=== PATIENT | male | born 1940 | race Caucasian/White ===

== ENCOUNTER 2023-09-27 14:39 | Outpatient (AMB) | payer MEDICARE, OTHER, SELFPAY ==
--- NOTE | 2023-09-27 14:25 | A.OFFPC_ITS ---
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 then dr melissa clement appt Intake Note: New patient visit Allergies No Known Allergies Allergy (Verified 09/27/23 14:44) Tobacco use date assessed: 09/27/23 Fall risk assessment: No Falls in past year Last assessed Fall Risk: 09/27/23 Dental Screening Dental Screen Date: 09/27/23 Did you have a dental visit in the last 12 months?: Yes Did you have a dental problem in the last 6 months where you did not have access to dental care?: No Was dental information given to patient?: Patient has dentist HPI HPI Comments History of Present Illness Details This is an 83-year-old male with a past medical history of GERD, hypercholesterolemia, hypertension, controlled type 2 diabetes, osteoarthritis, prostate cancer and gross hematuria presenting to [facility] care. The patient and his were snowbird spending half the year down at their home in [place]. Due to changes in infrastructure and new developments building down there they relocated full-time to their cottage in [place]. The patient signed a release for medical records. History of prostate cancer-patient says this was some 20 years ago. Patient says he was treated with radioactive seeds. He was followed by Urology. Eight years ago he had an episode of gross hematuria. It was only 1 time so he did not pursue medical intervention. Four years ago he had another episode. He went to the ER, but he was waiting too long to be seen and left. He saw his urologist. He says they did a cystoscopy. He does not recall other workup. They told him to return if symptoms came back. He has not had any other episodes. Hypertension is treated with amlodipine 5 mg, lisinopril 20 mg. His blood pressure is normal today. Hyperlipidemia is treated with 40 mg of simvastatin. He has not had labs done recently. GERD-this is related to a tight esophageal sphincter. He takes omeprazole. He has osteoarthritis for which he takes Rheumate. He says this is very helpful. He had bilateral knee replacement surgeries. He is on glimepiride 2 mg twice daily for diabetes. His last hemoglobin A1c was 6.8 or 6.9% in 02/27/2023. Requests referral to Podiatry-seen for foot exams. ROS: Constitutional: No unexplained weight loss, fever, chills, fatigue or night sweats. Respiratory: No shortness of breath, cough or sputum production. Cardiovascular: No chest pain, chest pressure or chest discomfort. No palpitations or pedal edema. Gastrointestinal: No anorexia, nausea, vomiting or diarrhea. No abdominal pain or blood in stool. Genitourinary: No dysuria, hematuria, urinary frequency. Neurologic: No headache, dizziness, syncope Endocrine: No cold or heat intolerance. No polyuria or polydipsia. Psychiatric: No depression or anxiety. No SI/HI. Physical exam: Constitutional: Alert, in no distress. Neck: Supple, Full range of motion. No lymphadenopathy. Respiratory: Clear to auscultation. Cardiovascular: S1 S2 regular. No murmurs. Gastrointestinal: Abdomen soft, non-tender, non-distended. Normal bowel sounds. No palpable masses. Genitourinary: No costovertebral angle tenderness. Extremities: Warm and well perfused. No clubbing, cyanosis or edema. Psychiatric: Normal mood and affect [facility] Medical History (Updated 09/27/23 @ 16:02 by RAHAT Ambrose) BPH (benign prostatic hyperplasia) Gross hematuria History of prostate cancer Pure hypercholesterolemia Essential hypertension Type 2 diabetes mellitus Arthritis Hypercholesteremia HTN (hypertension) GERD (gastroesophageal reflux disease) Bilateral knee pain Surgical History (Updated 09/27/23 @ 15:32 by RAHAT Ambrose) History of bilateral knee replacement History of appendectomy Family History (Updated 09/27/23 @ 14:58 by Morenita Clements CMA) Father Substance use Alcoholism Social History Housing: House Patient Tobacco Use Status: Former Tobacco user Tobacco use type: Cigar Years Smoked: Once in awhile in the past e-Cigarette/Vaping Use: Never Used service: No Current occupational status: retired Cognitive needs: No Hearing needs: Yes (hearing aids) Vision needs: No Questionnaire PHQ-9 Over the last 2 weeks, how often have you been bothered by any of the following problems? 1. Little interest or pleasure in doing things: not at all 2. Feeling down, depressed, or hopeless: not at all 3. Trouble falling or staying asleep, or sleeping too much: not at all 4. Feeling tired or having little energy: not at all 5. Poor appetite or overeating: not at all 6. Feeling bad about yourself - or that you are a failure or have let yourself or your family down: not at all 7. Trouble concentrating on things, such as reading the newspaper or watching television: not at all 8. Moving or speaking so slowly that other people could have noticed. Or the opposite - being so fidgety or restless that you have been moving around a lot more than usual: not at all 9. Thoughts that you would be better off or of hurting yourself in some way: not at all Total score: 0 Depression Screening Interpretation: Negative Depression Screening Done: Yes 79871 - PHQ-9 Billing: Yes Source: Developed by Drs. Fred Rhodes, Gregoria Welch, Timoteo Bunn and colleagues, with an educational maria r from [employer]. Thrive Questionnaire Date Thrive assessed: 09/27/23 I am a: Patient What is your living situation today?: I have a steady place to live Within the past 12 months, did the food you bought not last and you didn't have the money to get more?: Never true Within the past 12 months, did you worry whether your food would run out before you got money to buy more?: Never true Do you have trouble paying for medicines?: No Do you have trouble getting transportation to medical appointments?: No Do you have trouble paying your heating and electricity bill?: No Do you have trouble taking care of your child, family member or friend?: No Do you have trouble with day-to-day activities such as bathing, preparing meals, shopping, managing finances, etc.?: No Are you currently unemployed and looking for a job?: No Are you interested in more education?: No Please select the resources that you would like help with: None Currently or been in a relationship where the following occur: No concerns reported THRIVE Score: 0 AUDIT C Alcohol Use Questionnaire (AUDIT-C) 1. How often do you have a drink containing alcohol?: 4 or more times a week 2. How many drinks containing alcohol do you have on a typical day when you are drinking?: 1 or 2 3. How often do you have six or more drinks on one occasion?: Never Total Score: 4 EUGENE-7 AMB Questionnaire EUGENE-7 Date EUEGNE - 7 assessed: 09/27/23 Feeling nervous, anxious, or on edge: 0 = Not at all Not being able to stop or control worryin = Not at all Worrying too much about different things: 0 = Not at all Trouble relaxin = Not at all Being so restless that it is hard to sit still: 0 = Not at all Becoming easily annoyed or irritable: 0 = Not at all Feeling afraid as if something awful might happen: 0 = Not at all Total EUGENE-7 score (0-4 normal; 5-9 mild; 10-14 moderate; 15-21 severe): 0 Source: Developed by Drs. Fred Rhodes, Gregoria Welch, Timoteo Bunn and colleagues, with an educational maria r from [employer]. EUGENE-7 Assessment Billing EUGENE-7 Assessment Tool: EUGENE-7 Assessment 17415 Physical exam (Primary Care) Vital Signs: Last Vital Signs Temp 98.5 F 09/27/23 14:52 Pulse 87 09/27/23 14:52 Resp 14 09/27/23 14:52 BP 128/78 09/27/23 15:00 Pulse Ox 94 09/27/23 14:52 Oxygen Delivery Method Room Air 09/27/23 14:52 BMI result Body Mass Index 31.6 Tobacco/Smoking Status: Tobacco use Status Tobacco use date assessed 09/27/23 09/27/23 14:59 Patient Tobacco Use Status Former Tobacco user 09/27/23 14:59 Tobacco use type Cigar 09/27/23 14:59 e-Cigarette/Vaping Use Never Used 09/27/23 14:59 PHQ-9: PHQ-9 Score PHQ-9: Total score 0 09/27/23 15:33 Depression Screening Interpretation: Negative Thrive Assessment: Date of Thrive Assessment Date Thrive assessed 09/27/23 09/27/23 14:59 Currently or been in a relationship where the following occur: No concerns reported Assessment and Plan Assessment & Plan (1) Type 2 diabetes mellitus: Code(s): E11.9 - Type 2 diabetes mellitus without complications Qualifiers: Diabetes mellitus care home insulin use: without long term care administrator use Diabetes mellitus complication status: without complication Qualified Code(s): E11.9 - Type 2 diabetes mellitus without complications (2) Essential hypertension: Code(s): I10 - Essential (primary) hypertension (3) Pure hypercholesterolemia: Code(s): E78.00 - Pure hypercholesterolemia, unspecified (4) Arthritis: Code(s): M19.90 - Unspecified osteoarthritis, unspecified site (5) GERD (gastroesophageal reflux disease): Code(s): K21.9 - Gastro-esophageal reflux disease without esophagitis Qualifiers: Esophagitis presence: without esophagitis Qualified Code(s): K21.9 - Gastro-esophageal reflux disease without esophagitis (6) Gross hematuria: Code(s): R31.0 - Gross hematuria (7) History of prostate cancer: Code(s): Z85.46 - Personal history of malignant neoplasm of prostate Plan Type 2 diabetes Continue glimepiride. Check diabetic labs. He has supplies to check blood sugars at home. Target fasting readings 80-130. Hypertension Well-controlled. Check renal function. Continue current regimen. Low-sodium diet and avoidance of caffeine recommended. Hypercholesterolemia Recommended Mediterranean diet. Continue simvastatin. Check fasting lipid profile. Arthritis Refilled Rheumate for patient. 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 Refill given. Gross hematuria, history of prostate cancer Check UA, PSA, renal function. Referred to Urology. Records transfer pending. He has an appointment to establish care with his PCP in December. Orders: Orders Hemoglobin A1c Today E11.9 - Type 2 diabetes mellitus without complications, E78.00 - Pure hypercholesterolemia, unspecified, I10 - Essential (primary) hypertension Comprehensive Met. Panel Today E11.9 - Type 2 diabetes mellitus without complications, E78.00 - Pure hypercholesterolemia, unspecified, I10 - Essential (primary) hypertension Urine Culture Today R31.0 - Gross hematuria Lipid Panel Today E11.9 - Type 2 diabetes mellitus without complications, E78.00 - Pure hypercholesterolemia, unspecified, I10 - Essential (primary) hypertension UA w Microscopic Today R31.0 - Gross hematuria, Z85.46 - Personal history of malignant neoplasm of prostate Prostate Specific Antigen Scr Today Z12.5 - Encounter for screening for malignant neoplasm of prostate Referrals Urology Referral N40.0 - Benign prostatic hyperplasia without lower urinary tract symptoms, R31.0 - Gross hematuria, Z85.46 - Personal history of malignant neoplasm of prostate Podiatry Referral E11.9 - Type 2 diabetes mellitus without complications Medications: New simvastatin 40 mg PO .qhs 90 tabs 1RF lisinopril 20 mg PO DAILY 90 days 90 tabs 1RF glimepiride 2 mg PO BID 90 tabs 1RF amlodipine 5 mg PO DAILY 90 tabs 1RF omeprazole 20 mg PO DAILY 90 caps 1RF dutasteride 0.5 mg PO DAILY 90 caps 1RF [id number] 236 1-1-500 mg (Rheumate) 1 cap PO DAILY 90 caps 1RF Coding Level of Care Code New Pt Level 4 (29965) Complex EM visit Add On G2211 Diagnoses Type 2 diabetes mellitus without complication, without long-term current use of insulin E11.9 Diabetes mellitus care home insulin use: without care home use Diabetes mellitus complication status: without complication Essential hypertension I10 Pure hypercholesterolemia E78.00 Arthritis M19.90 Gastroesophageal reflux disease without esophagitis K21.9 Esophagitis presence: without esophagitis Gross hematuria R31.0 History of prostate cancer Z85.46 Additional Codes EUGENE-7 Assessment Billing - EUGENE-7 Assessment Tool: EUGENE-7 Assessment 02476 ([id number])
[2023-09-27 14:52] VITALS: BP 156/86; PULSE 87; RESP 14; TEMP 36.9; O2SAT 94; BMI 31.6
[2023-09-27 15:00] VITALS: BP 128/78
== END 2023-09-27 15:45 | disposition home or self-care (01) ==
PROVIDERS: PCP Family Medicine; Visit Provider Physician Assistant Medical
DX: E11.9 Type 2 diabetes mellitus without complications (principal); I10 Essential (primary) hypertension; E78.00 Pure hypercholesterolemia, unspecified; M19.90 Unspecified osteoarthritis, unspecified site; K21.9 Gastro-esophageal reflux disease without esophagitis; R31.0 Gross hematuria; Z85.46 Personal history of malignant neoplasm of prostate
CPT/HCPCS: 99204; G2211

== ENCOUNTER 2023-09-30 07:57 | Outpatient (REF) | payer MEDICARE, SELFPAY ==
[2023-09-30 11:16] LABS: Appearance Urine Clear; Color Urine Yellow; Glucose Urine UA Negative (Negative); Leukocyte Esterase Urine Negative (Negative); Nitrite Urine Negative (Negative); PH 5.5 (5.0-9.0); Specific Gravity - Urine 1.025 (1.005-1.025); Urine Blood Negative (Negative); Urine Ketones Negative (Negative); Urine Protein Trace mg/dL (Neg-Trace)
[2023-09-30 11:19] LABS: Bacteria Urine None Seen (None Seen); Hyaline Casts Urine 0-2 /LPF (0-2); RBC Urine 0-2 /HPF (0-2); Squamous Epithelial Cell Urine 0-2 /HPF (0-2); WBC Urine 0-5 /HPF (0-5)
[2023-09-30 11:29] LABS: Estimated Average Glucose 123 mg/dL; Hemoglobin A1C 149.0625 umol/L; Hemoglobin A1c % 5.9 % (<6.0)
[2023-09-30 11:44] LABS: Alanine Aminotransferase 21 U/L (0-40); Alkaline Phosphatase 38 U/L (39-117); Anion Gap 13 (12-20); Aspartate Amino Transferase 22 U/L (5-37); Bilirubin Total 1.2 mg/dL (0.0-1.0); Blood Urea Nitrogen 19 mg/dL (9-16); Calcium 9.2 mg/dL (8.4-10.2); Carbon Dioxide 21 mmol/L (22-29); Chloride 111 mmol/L (96-108); Cholesterol 176 mg/dL (<200); Estimated Glomerular Filt Rate > 60; Glucose Random 117 mg/dL (60-115); HDL Cholesterol 45 mg/dL (>40); LDL Cholesterol Calculated 107 mg/dL (<100); Sodium 141 mmol/L (135-145); Total Protein 7.1 g/dL (6.5-8.0); Triglycerides 122 mg/dL (<150)
[2023-09-30 11:56] LABS: Prostate Specific Antigen Scr < 0.10 ng/mL (<0.05-4.0)
== END 2023-09-30 07:58 | disposition home or self-care (01) ==
LOC: HO.WFDLDS 07:57
PROVIDERS: Visit Provider Physician Assistant Medical
DX: E11.9 Type 2 diabetes mellitus without complications (principal); I10 Essential (primary) hypertension; E78.00 Pure hypercholesterolemia, unspecified; R31.0 Gross hematuria; Z85.46 Personal history of malignant neoplasm of prostate; Z12.5 Encounter for screening for malignant neoplasm of prostate
CPT/HCPCS: 36415; 80053; 80061; 81001; 83036; 84153; 87086

== ENCOUNTER 2023-12-10 14:28 | Outpatient (AMB) | payer MEDICARE, SELFPAY ==
--- NOTE | 2023-12-10 15:12 | A.OFFPC_ITS ---
Vital Signs 12/10/23 15:18 Height 5 ft 6.34 in Weight 199 lb 6 oz BMI 31.8 BP 110/70 Blood Pressure Location Lt brachial Position Sitting Respiration 12 Pulse 79 Pulse Source Pulse Oximeter Pulse Oximetry (%) 96 Oxygen Delivery Method Room Air Intake Visit Reasons: Est Care Medications Intake Note: establish care Allergies No Known Allergies Allergy (Verified 12/10/23 15:16) Medication List - Last Reconciled 12/10/23 by Tyrell Carrasco MD amlodipine 5 mg PO DAILY cholecalciferol (vitamin D3) 50 mcg PO DAILY dutasteride 0.5 mg PO DAILY glimepiride 2 mg PO BID [id number] 236 1-1-500 mg (Rheumate) 1 cap PO DAILY lisinopril 20 mg PO DAILY 90 days multivitamin 1 tab PO DAILY omega-3 fatty acids 1,000 mg PO DAILY omeprazole 20 mg PO DAILY simvastatin 40 mg PO .qhs trospium 20 mg PO BID Tobacco use date assessed: 09/27/23 Dental Screening Dental Screen Date: 09/27/23 HPI Est Care Medications HPI Details New?patient Prior?PCP: Dr Pancho [place] Last?office?visit/CPE: 1 yr Acute?issue(s): Needs eye exam b/L foot arthritis. R foot flares up and painful. PMHx: HTN, DM, HLD, GERD, Arthritis, Hx Prostate CA s/p seeds, Hematuria, Cyst on Kidney - MRI Dec 04. SurgHx:??Appendectomy,?bilateral?knee?[facility] Medical History (Updated 12/10/23 @ 16:07 by Tyrell Carrasco MD) BPH (benign prostatic hyperplasia) Gross hematuria History of prostate cancer Pure hypercholesterolemia Essential hypertension Type 2 diabetes mellitus Arthritis Hypercholesteremia HTN (hypertension) GERD (gastroesophageal reflux disease) Bilateral knee pain Surgical History (Updated 09/27/23 @ 15:32 by RAHAT Ambrose) History of bilateral knee replacement History of appendectomy Family History (Updated 09/27/23 @ 14:58 by Morenita Clements CMA) Father Substance use Alcoholism Social History (Updated 12/10/23 @ 15:15 by Ronda Hadley [facility]) Housing: House Patient Tobacco Use Status: Former Tobacco user Tobacco use type: Cigar Years Smoked: Once in awhile in the past e-Cigarette/Vaping Use: Never Used service: No Current occupational status: retired Cognitive needs: No Hearing needs: Yes (hearing aids) Vision needs: No Questionnaire PHQ-9 Over the last 2 weeks, how often have you been bothered by any of the following problems? 1. Little interest or pleasure in doing things: not at all 2. Feeling down, depressed, or hopeless: not at all 3. Trouble falling or staying asleep, or sleeping too much: not at all 4. Feeling tired or having little energy: not at all 5. Poor appetite or overeating: not at all 6. Feeling bad about yourself - or that you are a failure or have let yourself or your family down: not at all 7. Trouble concentrating on things, such as reading the newspaper or watching television: not at all 8. Moving or speaking so slowly that other people could have noticed. Or the opposite - being so fidgety or restless that you have been moving around a lot more than usual: not at all 9. Thoughts that you would be better off or of hurting yourself in some way: not at all Total score: 0 Depression Screening Interpretation: Negative Depression Screening Done: Yes 22657 - PHQ-9 Billing: Yes Source: Developed by Drs. Fred Rhodes, Gregoria Welch, Timoteo Bunn and colleagues, with an educational maria r from [employer]. Thrive Questionnaire Date Thrive assessed: 12/10/23 I am a: Patient What is your living situation today?: I have a steady place to live Within the past 12 months, did the food you bought not last and you didn't have the money to get more?: Never true Within the past 12 months, did you worry whether your food would run out before you got money to buy more?: Never true Do you have trouble paying for medicines?: No Do you have trouble getting transportation to medical appointments?: No Do you have trouble paying your heating and electricity bill?: No Do you have trouble taking care of your child, family member or friend?: No Do you have trouble with day-to-day activities such as bathing, preparing meals, shopping, managing finances, etc.?: No Are you currently unemployed and looking for a job?: No Are you interested in more education?: No Please select the resources that you would like help with: None Currently or been in a relationship where the following occur: No concerns reported THRIVE Score: 0 AUDIT C Alcohol Use Questionnaire (AUDIT-C) 1. How often do you have a drink containing alcohol?: 4 or more times a week 2. How many drinks containing alcohol do you have on a typical day when you are drinking?: 1 or 2 3. How often do you have six or more drinks on one occasion?: Never Total Score: 4 EUGENE-7 AMB Questionnaire EUGENE-7 Date EUGENE - 7 assessed: 12/10/23 Feeling nervous, anxious, or on edge: 0 = Not at all Not being able to stop or control worryin = Not at all Worrying too much about different things: 0 = Not at all Trouble relaxin = Not at all Being so restless that it is hard to sit still: 0 = Not at all Becoming easily annoyed or irritable: 0 = Not at all Feeling afraid as if something awful might happen: 0 = Not at all Total EUGENE-7 score (0-4 normal; 5-9 mild; 10-14 moderate; 15-21 severe): 0 Source: Developed by Drs. Frde Rhodes, Gregoria Welch, Timoteo Bunn and colleagues, with an educational maria r from [employer]. EUGENE-7 Assessment Billing EUGENE-7 Assessment Tool: EUGENE-7 Assessment 31854 Review of Systems Const Denies chills, Denies fatigue, Denies fever(s), Denies headache(s) and Denies weakness ENT Denies dizziness and Denies headache(s) Card Denies chest pain, Denies lightheadedness, Denies dyspnea and Denies other (Palpitations) Resp Denies cough, Denies dyspnea, Denies wheezing and Denies other ( shortness of breath) Musc Denies numbness and Denies tingling Neuro Denies dizziness, Denies headache(s), Denies numbness, Denies tingling, Denies paresthesias and Denies weakness Psych Denies anxiety and Denies depression Endo Denies fatigue Aller/Immun Denies wheezing Physical exam (Primary Care) Vital Signs: Last Vital Signs Pulse 79 12/10/23 15:18 Resp 12 12/10/23 15:18 BP 110/70 12/10/23 15:18 Pulse Ox 96 12/10/23 15:18 Oxygen Delivery Method Room Air 12/10/23 15:18 BMI result Body Mass Index 31.8 Tobacco/Smoking Status: Tobacco use Status Tobacco use date assessed 09/27/23 12/10/23 15:14 Patient Tobacco Use Status Former Tobacco user 12/10/23 15:15 Tobacco use type Cigar 12/10/23 15:15 e-Cigarette/Vaping Use Never Used 12/10/23 15:15 PHQ-9: PHQ-9 Score PHQ-9: Total score 0 12/10/23 15:14 Depression Screening Interpretation: Negative Thrive Assessment: Date of Thrive Assessment Date Thrive assessed 12/10/23 12/10/23 15:14 Currently or been in a relationship where the following occur: No concerns reported Const General: no acute distress and well developed Nutritional Appearance: well nourished Orientation/consciousness: patient oriented x3 HENMT Head: Yes normocephalic and Yes atraumatic Eyes General: appearance normal, both eyes and all related structures Pupils: Equal, round and reactive pupils present EOM: EOMs intact bilaterally Resp Effort & Inspection: normal respiratory effort Auscultation: clear to auscultation bilaterally Cardio Rate: regular rate Rhythm: regular rhythm Heart sounds: S1 normal heart sound present, S2 normal heart sound present, no gallops, no murmurs and no rubs Neuro General: patient oriented x3 and gait normal Cranial nerves: Yes Equal, round and reactive pupils present Psych Affect: normal affect Coding Level of Care Code Est Pt Level 4 (38995) Diagnoses Gross hematuria R31.0 Renal cyst N28.1 Arthritis M19.90 BPH (benign prostatic hyperplasia) N40.0 Essential hypertension I10 Pure hypercholesterolemia E78.00 Type 2 diabetes mellitus without complication, without long-term current use of insulin E11.9 Diabetes mellitus continuous churn buttermaker insulin use: without snf use Diabetes mellitus complication status: without complication Additional Codes EUGENE-7 Assessment Billing - EUGENE-7 Assessment Tool: EUGENE-7 Assessment 75743 ([id number]) Assessment & Plan Assessment & Plan (1) Gross hematuria: Code(s): R31.0 - Gross hematuria Category: Medical Plan: Patient?has?hematuria?and?is?followed?by?Urology. Recent?imaging?showed?renal?cyst Has?upcoming?MRI?as?well. Will?request?urology's?most?recent?note?and?also?imaging (2) Renal cyst: Code(s): N28.1 - Cyst of kidney, acquired Category: Medical Plan: As?above (3) Arthritis: Code(s): M19.90 - Unspecified osteoarthritis, unspecified site Category: Medical Plan: Bilateral?foot?arthritis Has?upcoming?appointment?with?Podiatry Follow-up?with?podiatry Elevate?feet NSAIDs?or?Tylenol?as?needed Cold?pack (4) BPH (benign prostatic hyperplasia): Code(s): N40.0 - Benign prostatic hyperplasia without lower urinary tract symptoms Category: Medical Plan: History?of?prostate?CA?and?BPH s/p seeds.? PSA?was?less?than?0.10 Follow-up?with?urology?as?recommend (5) Essential hypertension: Code(s): I10 - Essential (primary) hypertension Category: Medical Plan: Blood?pressure?is?controlled Continue?current?medication (6) Pure hypercholesterolemia: Code(s): E78.00 - Pure hypercholesterolemia, unspecified Category: Medical Plan: LDL?cholesterol?mildly?elevated?at?107 Continue?simvastatin?and?work?at?diet?lower?in?saturated?fats?and?cholesterol (7) Type 2 diabetes mellitus: Code(s): E11.9 - Type 2 diabetes mellitus without complications Category: Medical Qualifiers: Diabetes mellitus snf insulin use: without continuous churn buttermaker use Diabetes mellitus complication status: without complication Qualified Code(s): E11.9 - Type 2 diabetes mellitus without complications Plan: Recent?A1c?was?5.9%. Goal?is?less?than?7.0% Continue?current?medication?regimen?and?work?at?diabetic?diet Needs?anaesthetic technician-referred Orders: Referrals Ophthalmology Referral E11.9 - Type 2 diabetes mellitus without complications
[2023-12-10 15:18] VITALS: BP 110/70; PULSE 79; RESP 12; O2SAT 96; BMI 31.8
== END 2023-12-10 16:07 | disposition home or self-care (01) ==
PROVIDERS: PCP Family Medicine; Visit Provider Family Medicine
DX: R31.0 Gross hematuria (principal); E11.9 Type 2 diabetes mellitus without complications; N28.1 Cyst of kidney, acquired; M19.90 Unspecified osteoarthritis, unspecified site; N40.0 Benign prostatic hyperplasia without lower urinary tract symptoms; I10 Essential (primary) hypertension; E78.00 Pure hypercholesterolemia, unspecified

== ENCOUNTER → 2023-12-10 14:28 | Outpatient (BNVA) | payer MEDICARE, SELFPAY | PROVIDERS: PCP Family Medicine; Visit Provider Family Medicine | DX: R31.0 Gross hematuria (principal); N28.1 Cyst of kidney, acquired; M19.90 Unspecified osteoarthritis, unspecified site; N40.0 Benign prostatic hyperplasia without lower urinary tract symptoms; I10 Essential (primary) hypertension; E11.9 Type 2 diabetes mellitus without complications; E78.00 Pure hypercholesterolemia, unspecified | CPT/HCPCS: 96127; 99212 ==

== ENCOUNTER 2024-02-03 11:15 | Outpatient (AMB) | payer MEDICARE, SELFPAY ==
--- NOTE | 2024-02-03 11:20 | A.OFFPC_ITS ---
Vital Signs 02/03/24 11:24 02/03/24 11:31 Height 5 ft 6.34 in Weight 202 lb BMI 32.3 BP 140/70 H 130/80 Blood Pressure Location Rt brachial Rt brachial Position Sitting Sitting Respiration 14 Pulse 62 Pulse Source Pulse Oximeter Temp 97.4 F Temp Source Oral Pulse Oximetry (%) 96 Oxygen Delivery Method Room Air Intake Visit Reasons: Physical Intake Note: extended exam Allergies No Known Allergies Allergy (Verified 02/03/24 11:20) Medication List - Last Reconciled 02/03/24 by Tyrell Carrasco MD amlodipine 5 mg PO DAILY cholecalciferol (vitamin D3) 50 mcg PO DAILY dutasteride 0.5 mg PO DAILY glimepiride 2 mg PO BID [id number] 1-1-500 mg (Rheumate) 1 cap PO DAILY lisinopril 20 mg PO DAILY 90 days multivitamin 1 tab PO DAILY omega-3 fatty acids 1,000 mg PO DAILY omeprazole 20 mg PO DAILY simvastatin 40 mg PO .qhs trospium 20 mg PO BID Tobacco use date assessed: 02/03/24 Fall risk assessment: No Falls in past year Last assessed Fall Risk: 02/03/24 Dental Screening Dental Screen Date: 02/03/24 Did you have a dental visit in the last 12 months?: Yes Did you have a dental problem in the last 6 months where you did not have access to dental care?: Yes Was dental information given to patient?: Patient has dentist HPI Physical HPI Details 83 y/o male presents for an extended exa m with f/u labs and health maintenance. Blood pressure today 140/70, 62p. He is on lisinopril 20mg, amlodipine 5mg daily. Notes he had been in a painting when his blood pressure was taken. BP upon relaxation 130/80. Recent eye exam showed no diabetic retinopathy. Has complaints of an umbilical hernia. Has been getting some exercise. Notes last colonoscopy a few years ago. Hx of prostate cancer and is followed by urology. HPI Comments History of Present Illness Details Documentation assistance for Tyrell Carrasco MD, was provided by Espinoza Nielsen,? Hydrometer Tester on 02/03/2024 at 11:33 AM EST. I, Dr. Carrasco, have read, observed, and verified documentation. [facility] Medical History (Updated 02/03/24 @ 11:42 by Espinoza Nielsen) BPH (benign prostatic hyperplasia) Gross hematuria History of prostate cancer Pure hypercholesterolemia Essential hypertension Type 2 diabetes mellitus Arthritis Hypercholesteremia HTN (hypertension) GERD (gastroesophageal reflux disease) Bilateral knee pain Surgical History History of bilateral knee replacement History of appendectomy Family History Father Substance use Alcoholism Social History Housing: House Patient Tobacco Use Status: Former Tobacco user Tobacco use type: Cigar Years Smoked: Once in awhile in the past e-Cigarette/Vaping Use: Never Used Second Hand Smoke Exposure: No service: No Current occupational status: retired Cognitive needs: No Hearing needs: Yes (hearing aids) Vision needs: No Questionnaire PHQ-9 Over the last 2 weeks, how often have you been bothered by any of the following problems? 1. Little interest or pleasure in doing things: not at all 2. Feeling down, depressed, or hopeless: not at all 3. Trouble falling or staying asleep, or sleeping too much: not at all 4. Feeling tired or having little energy: not at all 5. Poor appetite or overeating: not at all 6. Feeling bad about yourself - or that you are a failure or have let yourself or your family down: not at all 7. Trouble concentrating on things, such as reading the newspaper or watching television: not at all 8. Moving or speaking so slowly that other people could have noticed. Or the opposite - being so fidgety or restless that you have been moving around a lot more than usual: not at all 9. Thoughts that you would be better off or of hurting yourself in some way: not at all Total score: 0 Depression Screening Interpretation: Negative Depression Screening Done: Yes 83326 - PHQ-9 Billing: Yes Source: Developed by Drs. Fred Rhodes, Gregoria Welch, Timoteo Bunn and colleagues, with an educational maria r from [employer]. Thrive Questionnaire Date Thrive assessed: 12/10/23 I am a: Patient What is your living situation today?: I have a steady place to live Within the past 12 months, did the food you bought not last and you didn't have the money to get more?: Never true Within the past 12 months, did you worry whether your food would run out before you got money to buy more?: Never true Do you have trouble paying for medicines?: No Do you have trouble getting transportation to medical appointments?: No Do you have trouble paying your heating and electricity bill?: No Do you have trouble taking care of your child, family member or friend?: I choose not to answer this question Do you have trouble with day-to-day activities such as bathing, preparing meals, shopping, managing finances, etc.?: No Are you currently unemployed and looking for a job?: No Are you interested in more education?: No Please select the resources that you would like help with: None Currently or been in a relationship where the following occur: I choose not to answer THRIVE Score: 0 AUDIT C Alcohol Use Questionnaire (AUDIT-C) 1. How often do you have a drink containing alcohol?: 2-3 times a week 2. How many drinks containing alcohol do you have on a typical day when you are drinking?: 3 or 4 3. How often do you have six or more drinks on one occasion?: Weekly Total Score: 7 EUGENE-7 AMB Questionnaire EUGENE-7 Date EUGENE - 7 assessed: 02/03/24 Feeling nervous, anxious, or on edge: 0 = Not at all Not being able to stop or control worryin = Not at all Worrying too much about different things: 0 = Not at all Trouble relaxin = Not at all Being so restless that it is hard to sit still: 0 = Not at all Becoming easily annoyed or irritable: 0 = Not at all Feeling afraid as if something awful might happen: 0 = Not at all Total EUGENE-7 score (0-4 normal; 5-9 mild; 10-14 moderate; 15-21 severe): 0 Source: Developed by Drs. Fred Rhodes, Gregoria Welch, Timoteo Bunn and colleagues, with an educational maria r from [employer]. EUGENE-7 Assessment Billing EUGENE-7 Assessment Tool: EUGENE-7 Assessment 21952 Review of Systems Const Denies chills, Denies fatigue, Denies fever(s), Denies headache(s) and Denies weakness Eyes Denies change in vision ENT Denies dizziness, Denies headache(s), Denies hearing loss, Denies nasal congestion, Denies sinus pain, Denies sinus pressure and Denies sore throat Card Denies chest pain, Denies lightheadedness, Denies dyspnea and Denies other (palpitations) Resp Denies cough, Denies dyspnea and Denies wheezing GI Denies abdominal pain, Denies melena, Denies hematochezia, Denies change in bowel habits, Denies dyspepsia and Denies nausea Denies hematuria and Denies dysuria Musc Denies abnormal gait, Denies myalgias, Denies arthralgias, Denies numbness and Denies tingling Skin/Breast Denies rash, Denies unusual bruising and Denies wounds Neuro Denies abnormal gait, Denies dizziness, Denies headache(s), Denies memory loss, Denies numbness, Denies Sensory deficit (Neuro), Denies tingling and Denies weakness Psych Denies anxiety, Denies depression and Denies memory loss Endo Denies cold intolerance, Denies fatigue, Denies heat intolerance, Denies polydipsia and Denies polyuria Daniel/Lymph Denies easy bleeding and Denies easy bruising Aller/Immun Denies wheezing Physical exam (Primary Care) Vital Signs: Last Vital Signs Temp 97.4 F 02/03/24 11:24 Pulse 62 02/03/24 11:24 Resp 14 02/03/24 11:24 BP 140/70 H 02/03/24 11:24 Pulse Ox 96 02/03/24 11:24 Oxygen Delivery Method Room Air 02/03/24 11:24 BMI result Body Mass Index 32.3 Tobacco/Smoking Status: Tobacco use Status Tobacco use date assessed 02/03/24 02/03/24 11:26 Patient Tobacco Use Status Former Tobacco user 02/03/24 11:26 Tobacco use type Cigar 02/03/24 11:26 e-Cigarette/Vaping Use Never Used 02/03/24 11:26 PHQ-9: PHQ-9 Score PHQ-9: Total score 0 02/03/24 11:26 Depression Screening Interpretation: Negative Thrive Assessment: Date of Thrive Assessment Date Thrive assessed 12/10/23 02/03/24 11:26 Currently or been in a relationship where the following occur: I choose not to answer Const General: no acute distress, well developed, alert and awake Nutritional Appearance: well nourished Orientation/consciousness: patient oriented x3 [facility] Head: Yes normocephalic and Yes atraumatic Ears: hearing grossly normal bilaterally and TM's normal bilaterally General nose exam: Normal external nose present and Normal nares present Mouth: Normal oral and palatal mucosa present and moist mucous membranes Teeth and gingiva: dentition normal Throat: Yes posterior oropharynx normal Eyes General: appearance normal, both eyes and all related structures Pupils: Equal, round and reactive pupils present and Pupil accommodation reflex normal EOM: EOMs intact bilaterally Neck Neck: Yes normal visual inspection, Yes no lymphadenopathy and Yes trachea midline Thyroid: Thyroid normal Carotids: no bruits Lymphatic: no lymphadenopathy noted Chest Chest palpation & inspection: normal inspection of the chest Resp Effort & Inspection: normal respiratory effort Auscultation: clear to auscultation bilaterally Cardio Rate: regular rate Rhythm: regular rhythm Heart sounds: S1 normal heart sound present, S2 normal heart sound present, no gallops, no murmurs and no rubs Bruits: no abdominal aortic bruits and no carotid bruits GI Palpation (GI): No Abdominal aortic bruit present, Soft to palpation, nontender, No hepatosplenomegaly present and No Rebound tenderness present Auscultation: normal bowel sounds General: Yes no CVA tenderness Back/Spine/Pelvis Back: no CVA tenderness Cervical Spine: cervical ROM normal and No Cervical spine tenderness Thoracic/Lumbar Spine: thoraco-lumbar ROM normal, No pain with thoraco-lumbar ROM, No thoracic spinal tenderness and No lumbar spinal tenderness Skin Lesions: no lesions Rashes: no rashes Trauma: no lacerations or abrasions Wounds: no wounds Nails: normal Neuro General: patient oriented x3 Cranial nerves: Yes Equal, round and reactive pupils present Cognition (Neuro): normal cognition Gait exam (Neuro): Normal gait present Motor exam (neuro): 5/5 motor strength present throughout Sensory Exam: No Sensory deficit (Neuro) Deep tendon reflexes (DTR's): Right patellar reflex intensity grade: 2+ and Left patellar reflex intensity grade: 2+ Extrem General: Yes normal to inspection and No edema Psych Appearance: grossly normal Affect: normal affect Attitude: cooperative Thought process: Normal thought process present Coding Level of Care Code Est Pt Level 4 (99967) Diagnoses Essential hypertension I10 Type 2 diabetes mellitus without complication, without long-term current use of insulin E11.9 Diabetes mellitus complication status: without complication Diabetes mellitus custodial insulin use: without software development project manager use History of prostate cancer Z85.46 Umbilical hernia K42.9 Screening for colon cancer Z12.11 Adult general medical exam Z00.00 Additional Codes EUGENE-7 Assessment Billing - EUGENE-7 Assessment Tool: EUGENE-7 Assessment 35944 ([id number]) PHQ-9 - 61319 - PHQ-9 Billing: Yes ([id number]) Assessment & Plan Assessment & Plan (1) Essential hypertension: Code(s): I10 - Essential (primary) hypertension Category: Medical Plan: Blood?pressure?improves?with?relaxation Continue?current?medication (2) Type 2 diabetes mellitus: Code(s): E11.9 - Type 2 diabetes mellitus without complications Category: Medical Qualifiers: Diabetes mellitus complication status: without complication Diabetes mellitus custodial insulin use: without custodial use Qualified Code(s): E11.9 - Type 2 diabetes mellitus without complications Plan: Stable Will?follow-up?in?3?months Recent?eye?exam?shows?no?diabetic?retinopathy (3) History of prostate cancer: Code(s): Z85.46 - Personal history of malignant neoplasm of prostate Category: Medical Plan: Followed?by?Urology?as [facility] Follow-up?as?recommended (4) Umbilical hernia: Code(s): K42.9 - Umbilical hernia without obstruction or gangrene Category: Medical Plan: Large,?asymptomatic?umbilical?hernia He?note?is?causing?many?problems Advised?him?seek?medical?care?i f?symptoms?nausea,?vomiting,?increasing?pain?or?inability?to?pass?stools?or?flat us (5) Screening for colon cancer: Code(s): Z12.11 - Encounter for screening for malignant neoplasm of colon Category: Medical Plan: Patient?had?a?recent?colonoscopy?in?[place]?3?years?ago?which?he?says?was?normal Patient?is?83 yrs?old Advised?him?to?follow-up?with?his?customer accounts advisor-likely?finished?with?screen ing (6) Adult general medical exam: Code(s): Z00.00 - Encounter for general adult medical examination without abnormal findings Category: Medical Plan: 83-year-old?male?presents?for?extended?exam Encouraged?healthy?diet?with?active?lifestyle?exercise
[2024-02-03 11:24] VITALS: BP 140/70; PULSE 62; RESP 14; TEMP 36.3; O2SAT 96; BMI 32.3
[2024-02-03 11:31] VITALS: BP 130/80
== END 2024-02-03 11:54 | disposition home or self-care (01) ==
PROVIDERS: PCP Family Medicine; Visit Provider Family Medicine
DX: I10 Essential (primary) hypertension (principal); E11.9 Type 2 diabetes mellitus without complications; Z85.46 Personal history of malignant neoplasm of prostate; K42.9 Umbilical hernia without obstruction or gangrene; Z12.11 Encounter for screening for malignant neoplasm of colon; Z00.00 Encounter for general adult medical examination without abnormal findings

== ENCOUNTER → 2024-02-03 11:15 | Outpatient (BNVA) | payer MEDICARE, SELFPAY | PROVIDERS: PCP Family Medicine; Visit Provider Family Medicine | DX: Z00.00 Encounter for general adult medical examination without abnormal findings (principal); I10 Essential (primary) hypertension; E11.9 Type 2 diabetes mellitus without complications; K42.9 Umbilical hernia without obstruction or gangrene; Z85.46 Personal history of malignant neoplasm of prostate | CPT/HCPCS: 96127; 99212 ==

== ENCOUNTER 2024-03-30 11:03 | Outpatient (REF) | payer MEDICARE, SELFPAY ==
[2024-03-30 13:56] LABS: Blood Urea Nitrogen 16 mg/dL (9-16); Estimated Glomerular Filt Rate > 60
== END 2024-03-30 11:04 | disposition home or self-care (01) ==
LOC: HO.WFDLDS 11:03
PROVIDERS: Visit Provider Urology
DX: N28.1 Cyst of kidney, acquired (principal)
CPT/HCPCS: 36415; 82565; 84520

== ENCOUNTER 2024-05-06 11:17 | Outpatient (AMB) | payer MEDICARE, SELFPAY ==
--- NOTE | 2024-05-06 11:50 | A.OFFPC_ITS ---
Vital Signs 05/06/24 11:53 Height 5 ft 6.34 in Weight 208 lb 6 oz BMI 33.3 BP 160/90 H Blood Pressure Location Rt brachial Position Sitting Respiration 14 Pulse 92 Pulse Source Pulse Oximeter Temp 98.6 F Temp Source Oral Pulse Oximetry (%) 97 Oxygen Delivery Method Room Air Intake Visit Reasons: f/u diabetes, HTN Intake Note: DM & HTN follow up Manager [employer] Required: No Allergies No Known Allergies Allergy (Verified 05/06/24 11:51) Tobacco use date assessed: 02/03/24 Dental Screening Dental Screen Date: 02/03/24 HPI f/u diabetes, HTN HPI Details 83 y/o male presents to f/u diabetes, hy pertension. A1c today 05/06/24 6.8%. He is on glimepiride 2mg b.i.d. Blood pressure today 160/90, 92p. He is on amlodipine 5mg, lisinopril 20mg daily. Notes stressors. Has been following up with urology for L renal mass, ?cancer. Pt stated he was opposted to any consideration of intervention, wants to continue survey. HPI Comments History of Present Illness Details Documentation assistance for Tyrell Carrasco MD, was provided by Espinoza Nielsen,? Sail Finisher Machine on 05/06/2024 at 11:58 AM EST. I, Dr. Carrasco, have read, observed, and verified documentation. ?? [facility], [facility] Medical History (Updated 05/06/24 @ 12:17 by Espinoza Nielsen) BPH (benign prostatic hyperplasia) Gross hematuria History of prostate cancer Pure hypercholesterolemia Essential hypertension Type 2 diabetes mellitus Arthritis Hypercholesteremia HTN (hypertension) GERD (gastroesophageal reflux disease) Bilateral knee pain Surgical History History of bilateral knee replacement History of appendectomy Family History Father Substance use Alcoholism Social History Housing: House Patient Tobacco Use Status: Former Tobacco user Tobacco use type: Cigar Years Smoked: Once in awhile in the past e-Cigarette/Vaping Use: Never Used Second Hand Smoke Exposure: No service: No Current occupational status: retired Cognitive needs: No Hearing needs: Yes (hearing aids) Vision needs: No Questionnaire PHQ-9 Over the last 2 weeks, how often have you been bothered by any of the following problems? 1. Little interest or pleasure in doing things: not at all 2. Feeling down, depressed, or hopeless: not at all 3. Trouble falling or staying asleep, or sleeping too much: not at all 4. Feeling tired or having little energy: not at all 5. Poor appetite or overeating: not at all 6. Feeling bad about yourself - or that you are a failure or have let yourself or your family down: not at all 7. Trouble concentrating on things, such as reading the newspaper or watching television: not at all 8. Moving or speaking so slowly that other people could have noticed. Or the opposite - being so fidgety or restless that you have been moving around a lot more than usual: not at all 9. Thoughts that you would be better off or of hurting yourself in some way: not at all Total score: 0 Source: Developed by Drs. Fred Rhodes, Gregoria Welch, Timoteo Bunn and colleagues, with an educational maria r from [employer] Thrive Questionnaire Date Thrive assessed: 04/29/24 I am a: Patient What is your living situation today?: I have a steady place to live Within the past 12 months, did the food you bought not last and you didn't have the money to get more?: Never true Within the past 12 months, did you worry whether your food would run out before you got money to buy more?: Never true Do you have trouble paying for medicines?: No Do you have trouble getting transportation to medical appointments?: No Do you have trouble paying your heating and electricity bill?: No Do you have trouble taking care of your child, family member or friend?: No Do you have trouble with day-to-day activities such as bathing, preparing meals, shopping, managing finances, etc.?: No Are you currently unemployed and looking for a job?: No Are you interested in more education?: No Please select the resources that you would like help with: None Currently or been in a relationship where the following occur: No concerns reported THRIVE Score: 0 AUDIT C Alcohol Use Questionnaire (AUDIT-C) 1. How often do you have a drink containing alcohol?: 2-3 times a week 2. How many drinks containing alcohol do you have on a typical day when you are drinking?: 1 or 2 3. How often do you have six or more drinks on one occasion?: Never Total Score: 3 EUGENE-7 AMB Questionnaire EUGENE-7 Date EUGENE - 7 assessed: 02/03/24 Feeling nervous, anxious, or on edge: 0 = Not at all Not being able to stop or control worryin = Not at all Worrying too much about different things: 0 = Not at all Trouble relaxin = Not at all Being so restless that it is hard to sit still: 0 = Not at all Becoming easily annoyed or irritable: 0 = Not at all Feeling afraid as if something awful might happen: 0 = Not at all Total EUGENE-7 score (0-4 normal; 5-9 mild; 10-14 moderate; 15-21 severe): 0 Source: Developed by Drs. Fred Rhodes, Gregoria Welch, Timoteo Bunn and colleagues, with an educational maria r from [employer] Review of Systems Const Denies chills, Denies fatigue, Denies fever(s), Denies headache(s) and Denies weakness ENT Denies dizziness and Denies headache(s) Card Denies dyspnea Resp Denies cough, Denies dyspnea, Denies wheezing and Denies other (shortness of breath) Musc Denies numbness and Denies tingling Neuro Denies dizziness, Denies headache(s), Denies numbness, Denies tingling and Denies weakness Psych Denies anxiety and Denies depression Endo Denies fatigue Aller/Immun Denies wheezing Physical exam (Primary Care) Vital Signs: Last Vital Signs Temp 98.6 F 05/06/24 11:53 Pulse 92 05/06/24 11:53 Resp 14 05/06/24 11:53 BP 160/90 H 05/06/24 11:53 Pulse Ox 97 05/06/24 11:53 Oxygen Delivery Method Room Air 05/06/24 11:53 BMI result Body Mass Index 33.3 Tobacco/Smoking Status: Tobacco use Status Tobacco use date assessed 02/03/24 05/06/24 11:55 Patient Tobacco Use Status Former Tobacco user 05/06/24 11:55 Tobacco use type Cigar 05/06/24 11:55 e-Cigarette/Vaping Use Never Used 05/06/24 11:55 PHQ-9: PHQ-9 Score PHQ-9: Total score 0 05/06/24 11:58 Thrive Assessment: Date of Thrive Assessment Date Thrive assessed 04/29/24 05/06/24 11:55 Currently or been in a relationship where the following occur: No concerns reported Const General: well developed; No acute distress Nutritional Appearance: well nourished Orientation/consciousness: patient oriented x3 [facility] Head: Yes normocephalic and Yes atraumatic Eyes General: appearance normal, both eyes and all related structures Pupils: Equal, round and reactive pupils present EOM: EOMs intact bilaterally Resp Effort & Inspection: normal respiratory effort Neuro General: patient oriented x3 and gait normal Cranial nerves: Yes Equal, round and reactive pupils present Psych Affect: normal affect Results AMB Hemoglobin A1c AMB Hemoglobin A1c 6.8 % Last Edit by Ronda Hadley CMA on 05/06/24 11:59 Results Reviewed Results Reviewed: Laboratory Last Values Hgb A1c (Clinic) 6.8 % (4.0-6.0) H 05/06/24 11:58 Coding Level of Care Code Est Pt Level 4 (66064) Diagnoses Type 2 diabetes mellitus without complication, without long-term current use of insulin E11.9 Diabetes mellitus complication status: without complication Diabetes mellitus penitentiary insulin use: without continuous churn buttermaker use Essential hypertension I10 Left renal mass N28.89 Assessment & Plan Assessment & Plan (1) Type 2 diabetes mellitus: Code(s): E11.9 - Type 2 diabetes mellitus without complications Category: Medical Qualifiers: Diabetes mellitus complication status: without complication Diabetes mellitus continuous churn buttermaker insulin use: without penitentiary use Qualified Code(s): E11.9 - Type 2 diabetes mellitus without complications Plan: A1c?6.8%.??Good?control.??Goal?is?less?than?7.0% Continue?current?medications Patient?had?diabetic?eye?exam?in?December?which?showed?no?diabetic?retinopathy. Up-to-date (2) Essential hypertension: Code(s): I10 - Essential (primary) hypertension Category: Medical Plan: Blood?pressure?is?too?high. Continue?lisinopril?20?mg?daily.??Will?increase?amlodipine?from?5?mg?daily?to?10 ?mg?daily. Call?or?return?to?office?for?any?problems (3) Left renal mass: Code(s): N28.89 - Other specified disorders of kidney and ureter Category: Medical Plan: Followed?by?Urology?and?has?a f/u?appointment?in?about?6?months. MRI?is?ordered Orders: Orders AMB Hemoglobin A1c Today E11.9 - Type 2 diabetes mellitus without complications Medications: Changed From amlodipine 5 mg PO DAILY 90 tabs 0RF To amlodipine 10 mg PO DAILY 90 days 90 tabs 2RF
[2024-05-06 11:53] VITALS: BP 160/90; PULSE 92; RESP 14; TEMP 37; O2SAT 97; BMI 33.3
--- OUTSIDE RECORDS SUMMARY | 2024-05-06 14:11 | XMS_ITS | Clinical Summary ---
Author Organization 175 [facility] Address [address] [place] [address] Phone Care Team Providers Care Hand Tufter Name Role Phone yTrell Carrasco MD Primary Care Provider Allergies Active Allergy Reactions Criticality Noted Date Comments Prednisone 12/13/2023 Medications albuterol sulfate (ProAir RespiClick) 90 mcg/actuation aerosol powdr breath activated Inhale into the lungs. Active albuterol 2.5 mg/0.5 mL solution for nebulization nebulizer solution Inhale 2.5 mg into the lungs daily. Active atorvastatin (LIPITOR) 20 mg tablet Take 1 tablet (20 mg total) by mouth 1 (one) time each day. Active benzonatate (TESSALON) 100 mg capsule Take 1 Capsule by mouth 3 times daily as needed. Active cephalexin (KEFLEX) 500 mg capsule Take 1 capsule (500 mg total) by mouth 2 (two) times a day. Active cetirizine (ZyrTEC) 10 mg capsule Take 10 mg by mouth daily. Active diclofenac (VOLTAREN) 1 % topical gel Apply 4 g topically 2 (two) times a day. 4 Active dicyclomine (BENTYL) 20 mg tablet Take 1 tablet (20 mg total) by mouth every 6 (six) hours. Active eluxadoline (Viberzi) 75 mg tablet Take 75 mg by mouth 1 (one) time each day. Max Daily Amount: 75 mg Active famotidine (PEPCID) 40 mg tablet Take 1 tablet (40 mg total) by mouth 1 (one) time each day. Active ferrous sulfate 325 mg (65 mg iron) EC tablet Take 1 Tablet by mouth 3 times daily (with meals). Active gabapentin (NEURONTIN) 300 mg capsule Take 1 capsule (300 mg total) by mouth 2 (two) times a day. Active metFORMIN (GLUCOPHAGE) 1,000 mg tablet Take 1 Tablet by mouth 2 times daily (with meals). Active metoclopramide (REGLAN) 10 mg tablet Take 1 Tablet by mouth 4 times daily. Active topiramate (TOPAMAX) 25 mg tablet Take 1 tablet (25 mg total) by mouth 2 (two) times a day. Active OMEPRAZOLE ORAL Take 40 mg by mouth 1 (one) time each day. Active Active Problems Problem Noted Date Diagnosed Date Bunion, left foot 12/13/2023 Contusion of chest wall with intact skin 024 Diarrhea 12/13/2023 Duodenal ulcer 12/13/2023 Fatigue 12/13/2023 HTN (hypertension) 12/13/2023 Hyperlipidemia LDL goal <100 12/13/2023 KAYE (nonalcoholic steatohepatitis) 12/13/2023 Nocturnal leg cramps 12/13/2023 Numbness and tingling in left arm 12/13/2023 Type 2 diabetes mellitus with diabetic neuropath y 12/13/2023 Vitamin D deficiency 12/13/2023 Encounters Date Type Department Care Team Description 03/09/2024 8:15 AM EST Office Visit Orthopedic Surgery [address] [address] Duane Blankenship DPM Acquired hammer toe of right foot (Primary Dx); Hallux rigidus of right foot 02/18/2024 8:15 AM EST Office Visit Orthopedic Surgery [address] [address] Duane Blankenship DPM Acquired hammer toe of right foot (Primary Dx); Bilateral foot pain; Hallux rigidus of right foot; Hallux rigidus of left foot; Ulcer of toe of right foot, with fat layer exposed (CMS/HCC); Dermatophytosis of nail; Difficulty walking; Bilateral femoral artery stenosis (CMS/HCC); Pain in toe of right foot; Pain in toe of left foot from Last 3 Months Social History Tobacco Use Types Packs/Day Years Used Date Smoking Tobacco: Never Assessed Sex and Gender Information Value Date Recorded Sex Assigned at Not on file Legal Sex Male 11:38 AM EDT Gender Identity Not on file Sexual Orientation Not on file Last Filed Vital Signs Vital Sign Reading Time Taken Comments Blood Pressure - - Pulse - - Temperature - - Respiratory Rate - - Oxygen Saturation - - Inhaled Oxygen Concentration - - Weight 91.2 kg (201 lb) 03/09/2024 8:22 AM EST Height 175.3 cm (5' 9.02 ) 03/09/2024 8:22 AM ES T Body Mass Index 29.67 03/09/2024 8:22 AM EST Plan of Treatment Upcoming Encounters Date Type Department Care Team (Late st Contact Info) Description 06/15/2024 8:15 AM EDT Office Visit Orthopedic Surgery - [place] [address] [address] Duane Blankenship, DEIDRE [address] [address] Health Maintenance Due Date Last Done Comments Diabetes: Annual GFR (Glomerular Filtration Rate) 1942 Diabetes: Annual Foot Exam 1952 Diabetes: Annual Retina Eye Exam 1952 DTaP,Tdap,and Td Vaccines (1 - Tdap) 1961 Pneumococcal Vaccine: 50+ Years (1 of 2 - PCV) 1961 RSV Immunization Patients 60 + Years Old (1 - 1-dose 75+ series) 2017 COVID-19 Vaccine ( - 2023-2 5 season) 2023 Cholesterol Screening (Lipid Panel) 12/23/2023 Depression Screening 12/23/2023 Diabetes: Annual Urine Albumin-Creatinine Ratio (uACR) 12/23/2023 Diabetes: Blood Sugar Contro l Test (HGBA1C) 12/23/2023 Falls Risk Assessment 12/23/2023 Hypertension/CHF/CAD Annual BMP Blood Test 12/23/2023 Medicare Annual Wellness Visit 12/23/2023 Social Influencers of Health Screening 12/23/2023 Zoster Vaccines Completed 12/16/2023, 10/19/2023 Influenza Vaccine Completed 01/22/2024 HIB Vaccines Aged Out No longer eligi ble based on patient's age to complete this topic HPV Vaccines Aged Out No longer eligi ble based on patient's age to complete this topic Hepatitis A Vaccines Aged Out No long er eligible based on patient's age to complete this topic Hepatitis B Vaccines Aged Out No long er eligible based on patient's age to complete this topic IPV Vaccines Aged Out No longer eligi ble based on patient's age to complete this topic MMR Vaccines Aged Out No longer eligi ble based on patient's age to complete this topic Meningococcal ACWY Vaccine Aged Out N o longer eligible based on patient's age to complete this topic Meningococcal B Vacine Aged Out No lo nger eligible based on patient's age to complete this topic RSV Immunization Patients Under 20 months Aged Out No longer eligible b ased on patient's age to complete this topic Varicella Vaccines Aged Out No longer eligible based on patient's age to complete this topic Procedures Procedure Name Priority Date/Time Associated Diagnosis Comments XR FOOT 3+ VIEWS BILAT Routine 02/18/2024 8:31 AM EST Bilateral foot pain from Last 3 Months Results * XR Foot 3+ Views bilat (02/18/2024 8:31 AM EST) Anatomical Region Laterality Modality Lower Extremities, Foot Bilateral Computed Radiography Narrative 02/18/2024 5:18 PM EST Left foot 3 views Advanced osteoarthritis of lesser digits metatarsophalangeal and dislocation with advanced arthritis of the first tarsal phalangeal joint hammertoe contracture noted Right foot 3 views advanced osteoarthritis of the hindfoot midfoot and forefoot pes planus foot type with degenerative changes of the great toe joint hammertoe contracture abutting the great toe no acute erosions at area of ulceration of the proximal interphalangeal joint medially Duane Blankenship DPM IMG XR PROCEDURES Final R esult from Last 3 Months Insurance MEDICARE COMMERCIAL GENERIC Care Teams Hand Tufter Relationship Specialty Start Date End Date Tyrell Carrasco MD [address] [place] [address] Dr Jennifer MA PCP - General 10/01/23
--- OUTSIDE RECORDS SUMMARY | 2024-05-06 14:11 | XMS_ITS | Patient Health Record ---
Author Organization [facility] Address [address] [place] [address] Care Team Providers Care Ribbon Blockmaker Name Role Phone Sánchez Frances D.O. Primary Care Provider Emily vailable Reason For Referral No Information Medications Medication SIG (Take, Route, Frequency, Duration) Notes Start Date End Date Status Simvastatin Active Lisinopril Active Omeprazole 20 MG TAKE 1 CAPSULE BY [facility] ONCE DAILY 30 MINS BEFORE A MEAL for 90 Active amLODIPine Besy-Benazepril HCl Active Glimepiride Active Ferrex 150 Active Social History Tobacco Use: Social History Observation Description Date Details (start date - stop date) Never Smoker NA - NA Tobacco Use/Smoking Question Answer Notes Are you a nonsmoker Additional Findings: Tobacco Non-User Current no n-smoker Alcohol Screen (Audit-C) Question Answer Notes Did you have a drink contain ing alcohol in the past year? Yes How often did you have a dri nk containing alcohol in the past year? 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) Active confirmed Problem History of polyp of colon (418105098) Personal history of colonic polyps (Z86.010) Active confirmed Problem Hiatal hernia (87365913) Hiatal hernia (K44.0) Active confirmed Problem Obesity (583620657) Obesity (E66.9) Active confirmed Problem Gastroesophageal reflux disease (543986533) GERD (gastroesophag eal reflux disease) (K21.9) Active confirmed Plan Of Treatment No Information Insurance Providers Payer Name Payer Address Payer Phone Subscriber Number Group Number Insured Name Patient Relationship to Insured Coverage Start Date Coverage End Date [place] [address] [address] [place] [address] [id number] [place] [id number] SHERIF BUTTERFIELD Self - patient is the insured [employer] Insurance [address] [place] [id number] SHERIF BUTTERFIELD Self - patient is the insured Medical (General) History Medical History History ICD Code high blood pressure DIABETES Surgical History Surgery Date(Month/Year) knee surgery colonoscopy 10 yrs ago
== END 2024-05-06 12:27 | disposition home or self-care (01) ==
PROVIDERS: PCP Family Medicine; Visit Provider Family Medicine
DX: E11.9 Type 2 diabetes mellitus without complications (principal); I10 Essential (primary) hypertension; N28.89 Other specified disorders of kidney and ureter

== ENCOUNTER → 2024-05-06 11:17 | Outpatient (BNVA) | payer MEDICARE, SELFPAY | PROVIDERS: PCP Family Medicine; Visit Provider Family Medicine | DX: E11.9 Type 2 diabetes mellitus without complications (principal); I10 Essential (primary) hypertension; N28.89 Other specified disorders of kidney and ureter | CPT/HCPCS: 83036; 99212 ==

== ENCOUNTER 2024-08-12 08:09 | Outpatient (AMB) | payer MEDICARE, OTHER, SELFPAY ==
--- NOTE | 2024-08-12 08:17 | MHC.PC.OV ---
Vital Signs 08/12/24 08:19 Height 5 ft 6.34 in Weight 206 lb BMI 32.9 BP 126/82 Blood Pressure Location Rt brachial Position Sitting Respiration 14 Pulse 88 Pulse Source Pulse Oximeter Pulse Oximetry (%) 94 Oxygen Delivery Method Room Air Intake Visit Reasons: f/u HTN, DM Intake Note: Follow up diabetes and htn Team Otr Truck Driver Required: No Allergies No Known Allergies Allergy (Verified 08/12/24 08:44) Medication List - Last Reconciled 08/12/24 by Tyrell Carrasco MD amlodipine 10 mg PO DAILY 90 days cholecalciferol (vitamin D3) 50 mcg PO DAILY glimepiride 2 mg PO BID 90 days [id number] 1-1-500 mg (Rheumate) 1 cap PO DAILY lisinopril 20 mg PO DAILY 90 days multivitamin 1 tab PO DAILY omega-3 fatty acids 1,000 mg PO DAILY omeprazole 20 mg PO DAILY 90 days simvastatin 40 mg PO .qhs trospium 20 mg PO BID Tobacco use date assessed: 08/12/24 Fall risk assessment: No Falls in past year Last assessed Fall Risk: 08/12/24 Dental Screening Dental Screen Date: 08/12/24 Did you have a dental visit in the last 12 months?: Yes Did you have a dental problem in the last 6 months where you did not have access to dental care?: No Was dental information given to patient?: Patient has dentist HPI f/u HTN, DM HPI Details Patient?presents?to?follow-up?hypertension?and?diabetes. A1c?was?6.8%?at?last?visit. 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 Patient?has?issues?with?urinary?retention?and?feels?like?he?is?frequently?needing?to?use?the?bathroom Followed?by?urology?and?they?are?planning?an?MRI [facility] Medical History (Updated 08/12/24 @ 08:54 by Tyrell Carrasco MD) BPH (benign prostatic hyperplasia) Gross hematuria History of prostate cancer Pure hypercholesterolemia Essential hypertension Type 2 diabetes mellitus Arthritis Hypercholesteremia HTN (hypertension) GERD (gastroesophageal reflux disease) Bilateral knee pain Surgical History History of bilateral knee replacement History of appendectomy Family History Father Substance use Alcoholism Social History (Updated 08/12/24 @ 08:45 by Morenita Clements CMA) Housing: House Alcohol intake: current Patient Tobacco Use Status: Former Tobacco user Tobacco use type: Cigar Years Smoked: Once in awhile in the past e-Cigarette/Vaping Use: Never Used Second Hand Smoke Exposure: No service: No Current occupational status: retired Cognitive needs: No Hearing needs: Yes (hearing aids) Vision needs: No Questionnaire Thrive Questionnaire Date Thrive assessed: 04/29/24 I am a: Patient What is your living situation today?: I have a steady place to live Within the past 12 months, did the food you bought not last and you didn't have the money to get more?: Never true Within the past 12 months, did you worry whether your food would run out before you got money to buy more?: Never true Do you have trouble paying for medicines?: No Do you have trouble getting transportation to medical appointments?: No Do you have trouble paying your heating and electricity bill?: No Do you have trouble taking care of your child, family member or friend?: No Do you have trouble with day-to-day activities such as bathing, preparing meals, shopping, managing finances, etc.?: No Are you currently unemployed and looking for a job?: No Are you interested in more education?: No Please select the resources that you would like help with: None Currently or been in a relationship where the following occur: No concerns reported THRIVE Score: 0 AUDIT C Alcohol Use Questionnaire (AUDIT-C) 1. How often do you have a drink containing alcohol?: 2-3 times a week 2. How many drinks containing alcohol do you have on a typical day when you are drinking?: 1 or 2 3. How often do you have six or more drinks on one occasion?: Never Total Score: 3 EUGENE-7 AMB Questionnaire EUGENE-7 Date EUGENE - 7 assessed: 02/03/24 Source: Developed by Drs. Fred Rhodes, Gregoria Welch, Timoteo Bunn and colleagues, with an educational maria r from [employer]. Review of Systems Const Denies chills, Denies fatigue, Denies fever(s), Denies headache(s) and Denies weakness ENT Denies dizziness and Denies headache(s) Card Denies chest pain, Denies lightheadedness, Denies dyspnea and Denies other (Palpitations) Resp Denies cough, Denies dyspnea, Denies wheezing and Denies other ( shortness of breath) Details: See?HPI Musc Details: Right?medial?elbow?pain Denies numbness and Denies tingling Neuro Denies dizziness, Denies headache(s), Denies numbness, Denies tingling, Denies paresthesias and Denies weakness Psych Denies anxiety and Denies depression Endo Denies fatigue Aller/Immun Denies wheezing Physical exam (Primary Care) Vital Signs: Last Vital Signs Pulse 88 08/12/24 08:19 Resp 14 08/12/24 08:19 BP 126/82 08/12/24 08:19 Pulse Ox 94 08/12/24 08:19 Oxygen Delivery Method Room Air 08/12/24 08:19 BMI result Body Mass Index 32.9 Tobacco/Smoking Status: Tobacco use Status Tobacco use date assessed 08/12/24 08/12/24 08:19 Patient Tobacco Use Status Former Tobacco user 08/12/24 08:45 Tobacco use type Cigar 08/12/24 08:45 e-Cigarette/Vaping Use Never Used 08/12/24 08:45 Thrive Assessment: Date of Thrive Assessment Date Thrive assessed 04/29/24 08/12/24 08:19 Currently or been in a relationship where the following occur: No concerns reported Const General: no acute distress and well developed Nutritional Appearance: well nourished Orientation/consciousness: patient oriented x3 HENMT Head: Yes normocephalic and Yes atraumatic Eyes General: appearance normal, both eyes and all related structures Pupils: Equal, round and reactive pupils present EOM: EOMs intact bilaterally Resp Effort & Inspection: normal respiratory effort Auscultation: clear to auscultation bilaterally Cardio Rate: regular rate Rhythm: regular rhythm Heart sounds: S1 normal heart sound present, S2 normal heart sound present, no gallops, no murmurs and no rubs Neuro General: patient oriented x3 and gait normal Cranial nerves: Yes Equal, round and reactive pupils present Extrem Other: Pain/tenderness?and?right?medial?epicondyle Psych Affect: normal affect Results AMB Hemoglobin A1c AMB Hemoglobin A1c 6.4 % Last Edit by Morenita Clements CMA on 08/12/24 08:44 Results Reviewed Results Reviewed: Laboratory Last Values Hgb A1c (Clinic) 6.4 % (4.0-6.0) H 08/12/24 08:24 Coding Level of Care Code Est Pt Level 4 (70860) Diagnoses Essential hypertension I10 Type 2 diabetes mellitus without complication, without long-term current use of insulin E11.9 Diabetes mellitus care home insulin use: without long term care social worker use Diabetes mellitus complication status: without complication Medial epicondylitis, right elbow M77.01 BPH (benign prostatic hyperplasia) N40.0 Left renal mass N28.89 Assessment & Plan Assessment & Plan (1) Essential hypertension: Code(s): I10 - Essential (primary) hypertension Category: Medical Plan: Blood?pressure?now?well?controlled?after?adjusting?amlodipine?and?continuing?lisinopril Goal?is?less?than?140/90 Continue?current?medications (2) Type 2 diabetes mellitus: Code(s): E11.9 - Type 2 diabetes mellitus without complications Category: Medical Qualifiers: Diabetes mellitus long term care social worker insulin use: without long term care social worker use Diabetes mellitus complication status: without complication Qualified Code(s): E11.9 - Type 2 diabetes mellitus without complications Plan: A1c?well?controlled?at?6.4%.??Goal?is?less?than?7% Continue?medication?as?prescribed Encouraged?diabetic?diet, exercise?and?weight?control Patient?says?he?has?an?upcoming?appointment?with?his?humidifier attendant?or?eye?exam Patient?saw?his?commission auditor?recently (3) Medial epicondylitis, right elbow: Code(s): M77.01 - Medial epicondylitis, right elbow Category: Medical Plan: Decrease?activity?and?can?wrap?form?for?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
--- OUTSIDE RECORDS SUMMARY | 2024-08-12 08:18 | XMS_ITS | Patient Health Record ---
Author Organization [facility] Address [address] [place] [address] Care Team Providers Care Director Apparel Name Role Phone Sánchez Frances D.O. Primary Care Provider Emily vailable Reason For Referral No Information Medications Medication SIG (Take, Route, Frequency, Duration) Notes Start Date End Date Status Simvastatin Active Lisinopril Active Omeprazole 20 MG TAKE [address] 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) Active confirmed Problem History of polyp of colon (949723481) Personal history of colonic polyps (Z86.010) Active confirmed Problem Hiatal hernia (34343991) Hiatal hernia (K44.0) Active confirmed Problem Obesity (361527057) Obesity (E66.9) Active confirmed Problem Gastroesophageal reflux disease (102927579) GERD (gastroesophag eal reflux disease) (K21.9) Active confirmed Plan Of Treatment No Information Insurance Providers Payer Name Payer Address Payer Phone Subscriber Number Group Number Insured Name Patient Relationship to Insured Coverage Start Date Coverage End Date [place] [address] [address] [place] [address] [id number] [place] [id number] SHERIF BUTTERFIELD Self - patient is the insured [id number] Life and Accident Insurance [address] [place] [address] [id number] SHERIF BUTTERFIELD Self - patient is the insured Medical (General) History Medical History History ICD Code high blood pressure DIABETES Surgical History Surgery Date(Month/Year) knee surgery colonoscopy 10 yrs ago
[2024-08-12 08:19] VITALS: BP 126/82; PULSE 88; RESP 14; O2SAT 94; BMI 32.9
== END 2024-08-12 08:50 | disposition home or self-care (01) ==
LOC: HO.HMCFM 08:13
PROVIDERS: PCP Family Medicine; Visit Provider Family Medicine
DX: I10 Essential (primary) hypertension (principal); E11.9 Type 2 diabetes mellitus without complications; M77.01 Medial epicondylitis, right elbow; N40.0 Benign prostatic hyperplasia without lower urinary tract symptoms; N28.89 Other specified disorders of kidney and ureter

== ENCOUNTER → 2024-08-12 08:09 | Outpatient (BNVA) | payer MEDICARE, OTHER, SELFPAY | PROVIDERS: PCP Family Medicine; Visit Provider Family Medicine | DX: I10 Essential (primary) hypertension (principal); E11.9 Type 2 diabetes mellitus without complications; M77.01 Medial epicondylitis, right elbow; N40.0 Benign prostatic hyperplasia without lower urinary tract symptoms; N28.89 Other specified disorders of kidney and ureter | CPT/HCPCS: 83036; 99212 ==

== ENCOUNTER 2024-10-26 10:09 | Outpatient (REF) | payer MEDICARE, OTHER, SELFPAY ==
--- OUTSIDE RECORDS SUMMARY | 2024-10-26 11:05 | XMS_ITS | Clinical Summary ---
Author Organization 175 [facility] Address [address] [place] [address] Phone Care Team Providers Care Forming Fixer Name Role Phone Tyrell Carrasco MD Primary Care Provider Allergies Active [...] left arm 12/13/2023 Type 2 diabetes mellitus wit h diabetic neuropathy (CMS/[facility] V24, CMS/[facility] V28) 12/13/2023 Vitamin D deficiency 12/13/2023 Social History Tobacco Use Types Packs/Day Years [...] Care Team (Late st Contact Info) Description 12/15/2024 8:15 AM EDT Office Visit Orthopedic Surgery - [place] [address] [address] Duane Blankenship, DPM [address] [address] Health Maintenance Due Date Last Done Comments Diabetes: Annual GFR (Glomerular Filtration Rate) 1942 Diabetes: Annual Foot Exam 1952 Diabetes: Annual Retina Eye Exam 1952 DTaP,Tdap,and Td Vaccines (1 - Tdap) 1961 Pneumococcal Vaccine: 50+ Years (1 of 2 - PCV) 1961 RSV Immunization Adult Patients (1 - 1-dose 75+ series) 2017 COVID-19 Vaccine (1 - 2023-2 5 season) 2023 Cholesterol Screening (Lipid Panel) 12/23/2023 Diabetes: Annual Urine Albumin-Creatinine Ratio (uACR) 12/23/2023 Diabetes: Blood Sugar Contro l Test (HGBA1C) 12/23/2023 Falls Risk Assessment 12/23/2023 Hypertension/CHF/CAD Annual BMP Blood Test 12/23/2023 Medicare Annual Wellness Visit 12/23/2023 Social Influencers of Health Screening 12/23/2023 Depression Screening 03/11/2024 Influenza Vaccine (#1) 2024 01/22/2024 Zoster Vaccines Completed 12/16/2023, 10/19/2023 HIB Vaccines Aged Out No longer eligi [...] age to complete this topic Meningococcal B Vaccine Aged Out No l onger eligible based on patient's age to complete this topic RSV Immunization Patients Under 20 months Aged Out No longer eligible b ased on patient's age to complete this topic Varicella Vaccines Aged Out No longer eligible based on patient's age to complete this topic Insurance MEDICARE [employer] GENERIC Care Teams Forming Fixer Relationship Specialty Start Date End Date Tyrell Carrasco MD [address] [place] [address] Dr Jennifer MA PCP - General 10/01/23
--- OUTSIDE RECORDS SUMMARY | 2024-10-26 11:05 | XMS_ITS | Patient Health Record ---
Author Organization [facility] Address [address] [place] [address] Care Team Providers Care Machine Stacker Name Role Phone Sánchez Frances D.O. Primary Care Provider Emily vailable Reason For Referral No Information Medications Medication SIG (Take, Route, Frequency, Duration) Notes Start Date End Date Status Simvastatin Active Lisinopril Active Omeprazole 20 MG TAKE 1 CAPSULE BY [facility] ONCE DAILY 30 MINS BEFORE A MEAL; Duration: 90 Active amLODIPine Besy-Benazepril HCl Active Glimepiride [...] Status Risk Notes Problem Iron deficiency anemia (35938976) Iron deficiency anemia, unspecified (D50.9) Active confirmed Problem Esophagitis (90028847) Esophagitis, unspecified (K20.9) Active confirmed Problem Sun's esophagus (234788407) 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) Active confirmed Problem History of polyp of colon (866320766) Personal history of colonic polyps (Z86.010) Active confirmed Problem Hiatal hernia (78921663) Hiatal hernia (K44.0) Active confirmed Problem Obesity (239613186) Obesity (E66.9) Active confirmed Problem Gastroesophageal reflux disease (368716819) GERD (gastroesophag eal reflux disease) (K21.9) Active confirmed Plan Of Treatment No Information Insurance Providers Payer Name Payer Address Payer Phone Subscriber Number Group Number Insured Name Patient Relationship to Insured Coverage Start Date Coverage End Date [place] [address] [address] [place] [address] [id number] [place] 020 SHERIF BUTTERFIELD Self - patient is the insured [employer] Insurance [address] [place] [address] [id number] SHERIF BUTTERFIELD Self - patient is the insured Medical (General) History Medical History History ICD Code high blood pressure DIABETES Surgical History Surgery Date(Month/Year) knee surgery colonoscopy 10 yrs ago
[2024-10-26 12:38] LABS: Prostate Specific Antigen < 0.10 ng/mL (<0.05-4.0)
== END 2024-10-26 10:10 | disposition home or self-care (01) ==
LOC: HO.WFDLDS 10:09
PROVIDERS: Visit Provider Urology
DX: Z12.5 Encounter for screening for malignant neoplasm of prostate (principal); Z85.46 Personal history of malignant neoplasm of prostate
CPT/HCPCS: 36415; 84153

== ENCOUNTER 2024-12-14 08:23 | Outpatient (AMB) | payer MEDICARE, OTHER, SELFPAY ==
[2024-12-14 08:37] VITALS: BP 132/76; PULSE 68; RESP 14; O2SAT 96; BMI 32.0
--- NOTE | 2024-12-14 08:37 | A.OFFPC_ITS ---
Vital Signs 12/14/24 08:37 Height 5 ft 6.34 in Weight 200 lb 8 oz BMI 32.0 BP 132/76 Blood Pressure Location Lt brachial Position Sitting Respiration 14 Pulse 68 Pulse Source Pulse Oximeter Pulse Oximetry (%) 96 Oxygen Delivery Method Room Air Intake Visit Reasons: htn/dm Allergies No Known Allergies Allergy (Verified 08/12/24 08:44) Medication List - Last Reconciled 12/14/24 by Tyrell Carrasco MD amlodipine 10 mg PO DAILY 90 days cholecalciferol (vitamin D3) 50 mcg PO DAILY glimepiride 2 mg PO BID 90 days lisinopril 20 mg PO DAILY 90 days mecobalamin (vitamin B12) mcg PO multivitamin 1 tab PO DAILY omega-3 fatty acids 1,000 mg PO DAILY omeprazole 20 mg PO DAILY 90 days simvastatin 40 mg PO .hs Tobacco use date assessed: 12/14/24 Fall risk assessment: No Falls in past year Last assessed Fall Risk: 12/14/24 Dental Screening Dental Screen Date: 08/12/24 HPI htn/dm HPI Details 84 y/o male presents to f/u hypertension , diabetes. Blood pressure today 132/76, 68p. He is on lisinopril 20mg, amlodipine 10mg daily. A1c today 12/14/24 6.2%. Has complaints of a cyst. [facility] Medical History (Updated 12/14/24 @ 09:15 by Espinoza Nielsen) BPH (benign prostatic hyperplasia) Gross hematuria History of prostate cancer Pure hypercholesterolemia Essential hypertension Type 2 diabetes mellitus Arthritis Hypercholesteremia HTN (hypertension) GERD (gastroesophageal reflux disease) Bilateral knee pain Surgical History History of bilateral knee replacement History of appendectomy Family History Father Substance use Alcoholism Social History (Updated 12/14/24 @ 08:50 by Morenita Clements CMA) Housing: House Alcohol intake: current Patient Tobacco Use Status: Former Tobacco user Tobacco use type: Cigar Years Smoked: Once in awhile in the past e-Cigarette/Vaping Use: Never Used Second Hand Smoke Exposure: No Use of substances other than those prescribed or required for medical reasons: No service: No Current occupational status: retired Cognitive needs: No Hearing needs: Yes (hearing aids) Vision needs: No Questionnaire Thrive Questionnaire Date Thrive assessed: 04/29/24 I am a: Patient What is your living situation today?: I have a steady place to live Within the past 12 months, did the food you bought not last and you didn't have the money to get more?: Never true Within the past 12 months, did you worry whether your food would run out before you got money to buy more?: Never true Do you have trouble paying for medicines?: No Do you have trouble getting transportation to medical appointments?: No Do you have trouble paying your heating and electricity bill?: No Do you have trouble taking care of your child, family member or friend?: No Do you have trouble with day-to-day activities such as bathing, preparing meals, shopping, managing finances, etc.?: No Are you currently unemployed and looking for a job?: No Are you interested in more education?: No Please select the resources that you would like help with: None Currently or been in a relationship where the following occur: No concerns reported THRIVE Score: 0 AUDIT C Alcohol Use Questionnaire (AUDIT-C) 1. How often do you have a drink containing alcohol?: 4 or more times a week 2. How many drinks containing alcohol do you have on a typical day when you are drinking?: 1 or 2 3. How often do you have six or more drinks on one occasion?: Never Total Score: 4 EUGENE-7 AMB Questionnaire EUGENE-7 Date EUGENE - 7 assessed: 02/03/24 Source: Developed by Drs. Fred Rhodes, Gregoria Welch, Timoteo Bunn and colleagues, with an educational maria r from [employer]. Review of Systems Const Denies chills, Denies fatigue, Denies fever(s), Denies headache(s) and Denies weakness ENT Denies dizziness and Denies headache(s) Card Denies dyspnea Resp Denies cough, Denies dyspnea, Denies wheezing and Denies other (shortness of breath) Musc Denies numbness and Denies tingling Neuro Denies dizziness, Denies headache(s), Denies numbness, Denies tingling and Denies weakness Psych Denies anxiety and Denies depression Endo Denies fatigue Aller/Immun Denies wheezing Physical exam (Primary Care) Vital Signs: Last Vital Signs Pulse 68 12/14/24 08:37 Resp 14 12/14/24 08:37 BP 132/76 12/14/24 08:37 Pulse Ox 96 12/14/24 08:37 Oxygen Delivery Method Room Air 12/14/24 08:37 BMI result Body Mass Index 32.0 Tobacco/Smoking Status: Tobacco use Status Tobacco use date assessed 12/14/24 12/14/24 08:43 Patient Tobacco Use Status Former Tobacco user 12/14/24 08:50 Tobacco use type Cigar 12/14/24 08:50 e-Cigarette/Vaping Use Never Used 12/14/24 08:50 Thrive Assessment: Date of Thrive Assessment Date Thrive assessed 04/29/24 12/14/24 08:43 Currently or been in a relationship where the following occur: No concerns reported Const General: well developed; No acute distress Nutritional Appearance: well nourished Orientation/consciousness: patient oriented x3 HENMT Head: Yes normocephalic and Yes atraumatic Eyes General: appearance normal, both eyes and all related structures Pupils: Equal, round and reactive pupils present EOM: EOMs intact bilaterally Resp Effort & Inspection: normal respiratory effort Auscultation: clear to auscultation bilaterally Cardio Rate: regular rate Rhythm: regular rhythm Heart sounds: S1 normal heart sound present, S2 normal heart sound present, no gallops, no murmurs and no rubs Neuro General: patient oriented x3 and gait normal Cranial nerves: Yes Equal, round and reactive pupils present Psych Affect: normal affect Results AMB Hemoglobin A1c AMB Hemoglobin A1c 6.2 % Last Edit by Morenita Clements CMA on 12/14/24 08:53 Results Reviewed Results Reviewed: Laboratory Last Values Hgb A1c (Clinic) 6.2 % (4.0-6.0) H 12/14/24 08:47 Coding Level of Care Code Est Pt Level 5 (41821) Diagnoses Essential hypertension I10 Type 2 diabetes mellitus without complication, without long-term current use of insulin E11.9 Diabetes mellitus chcf insulin use: without bacteriologist fishery use Diabetes mellitus complication status: without complication Infected lesion of skin L08.9 Left renal mass N28.89 Assessment & Plan Assessment & Plan (1) Essential hypertension: Code(s): I10 - Essential (primary) hypertension Category: Medical Plan: Blood pressure is controlled. Goal is less than 140/90 Continue current medications Watch salt and sodium Encouraged exercise and weight control (2) Type 2 diabetes mellitus: Code(s): E11.9 - Type 2 diabetes mellitus without complications Category: Medical Qualifiers: Diabetes mellitus bacteriologist fishery insulin use: without bacteriologist fishery use Diabetes mellitus complication status: without complication Qualified Code(s): E11.9 - Type 2 diabetes mellitus without complications Plan: A1c 6.2%. Good control. Goal is less than 7.0% Continue glimepiride Continue working on a diabetic diet Up-to-date with eye exam and has next appointment coming up soon (3) Infected lesion of skin: Code(s): L08.9 - Local infection of the skin and subcutaneous tissue, unspecified Category: Medical Plan: Infected skin lesion behind his left ear Sending script for mupirocin He says he already has an appointment with Dermatology to determine the underlying issue. (4) Left renal mass: Code(s): N28.89 - Other specified disorders of kidney and ureter Category: Medical Plan: Left renal mass and followed by Urology No interval change with imaging but urology feels this does not rule out malignancy and continues to follow and evaluate. Follow-up with urology as recommended Plan He has a well visit scheduled for April. Orders: Orders Comprehensive [place]. Panel Fast Today Z00.00 - Encounter for general adult medical examination without abnormal findings Complete Blood Count Auto Diff Today Z00.00 - Encounter for general adult medical examination without abnormal findings Lipid Panel Today Z00.00 - Encounter for general adult medical examination without abnormal findings AMB Hemoglobin A1c Today E11.9 - Type 2 diabetes mellitus without complications Microalbumin, Random (w Creat) Today I10 - Essential (primary) hypertension TSH reflex Free T4 Today Z00.00 - Encounter for general adult medical examination without abnormal findings UA CC w/rflx Micro + Cult Today Z00.00 - Encounter for general adult medical examination without abnormal findings Vitamin D 25-OH Total Today E55.9 - Vitamin D deficiency, unspecified Medications: New mupirocin 2% (Centany) 1 appl topical BID 15 grams 0RF 14 days
--- OUTSIDE RECORDS SUMMARY | 2024-12-14 08:48 | XMS_ITS | Patient Health Record ---
Author Organization [facility] Address [address] [place] [address] Care Team Providers Care Integrated Circuit Ic Layout Designer Name Role Phone Sánchez Frances D.O. 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) Active confirmed Problem History of polyp of colon (434877928) Personal history of colonic polyps (Z86.010) Active confirmed Problem Hiatal hernia (97704503) Hiatal hernia (K44.0) Active confirmed Problem Obesity (071425570) Obesity (E66.9) Active confirmed Problem Gastroesophageal reflux disease (455668294) GERD (gastroesophag eal reflux disease) (K21.9) Active confirmed Plan Of Treatment No Information Insurance Providers Payer Name Payer Address Payer Phone Subscriber Number Group Number Insured Name Patient Relationship to Insured Coverage Start Date Coverage End Date [place] [address] [address] [place] [address] [id number] [place] [id number] SHERIF BUTTERFIELD Self - patient is the insured [email or web address] [address] [place] [id number] SHERIF BUTTERFIELD Self - patient is the insured Medical (General) History Medical History History ICD Code high blood pressure DIABETES Surgical History Surgery Date(Month/Year) knee surgery colonoscopy 10 yrs ago
--- OUTSIDE RECORDS SUMMARY | 2024-12-14 08:49 | XMS_ITS | Clinical Summary ---
Author Organization [address] [facility] Address [address] [place] [address] Phone Care Team Providers Care Swing Grinder Name Role Phone Tyrell Carrasco MD Primary [...] 2 diabetes mellitus wit h diabetic neuropathy (CMS/[facility] V24, CMS/[facility] V28) 12/13/2023 Vitamin D deficiency [...] AM EDT Office Visit Orthopedic Surgery - [place] [address] [address] Duane Blankenship, DPM [address] [address] Health Maintenance Due Date Last Done Comments Diabetes: Annual GFR (Glomerular Filtration Rate) 1942 Diabetes: Annual Foot Exam 1952 Diabetes: Annual Retina Eye Exam 1952 DTaP,Tdap,and Td Vaccines (1 - Tdap) 1961 Pneumococcal Vaccine: 50+ Years (1 of 2 - PCV) 1961 RSV Immunization Adult Patients (1 - 1-dose 75+ series) 2017 Cholesterol Screening (Lipid Panel) 12/23/2023 Diabetes: Annual Urine Albumin-Creatinine Ratio (uACR) 12/23/2023 Diabetes: Blood Sugar Contro l Test (HGBA1C) 12/23/2023 Falls Risk Assessment 12/23/2023 Hypertension/CHF/CAD Annual BMP Blood Test 12/23/2023 Medicare Annual Wellness Visit 12/23/2023 Social Influencers of Health Screening 12/23/2023 Depression Screening 03/11/2024 COVID-19 Vaccine ( - 2023-2 5 season) 2024 Influenza Vaccine (#1) 2024 01/22/2024 Zoster Vaccines [...] age to complete this topic Insurance MEDICARE COMMERCIAL GENERIC Care Teams Swing Grinder Relationship Specialty Start Date End Date Tyrell Carrasco MD [address] [place] [address] Dr Jennifer MA PCP - General 10/01/23
--- OUTSIDE RECORDS SUMMARY | 2024-12-14 08:49 | XMS_ITS | Patient Health Record ---
Author Organization [facility] [place] Address [address] [place] [address] Care Team Providers Care Supply Specialist Name Role Phone Sánchez Frances DO Primary Care Provider DAJA Neff Unavailable [phone] Allergies No Known Allergies Reason For Referral No Information Medications Medication SIG (Take, Route, Frequency, Duration) Notes Start Date End Date Status Fluticasone Propionate 50 MCG/ACT 1 spray in each nostril Nasally twice a day (bid); Duration: 30 day(s) 02/01/2015 Active Fish Oil 1000 MG 1 capsule Orally Onc e a day Active Lisinopril 20 MG 1 tablet Orally Once a day Active Simvastatin 40 MG 1 tablet in the even ing Orally Once a day Active Daily Vitamin 1 tablet Orally Once a day Active amLODIPine Besylate 2.5 MG 1 tablet Oral ly Once a day Active Glimepiride 2 MG 1 tablet with breakf ast or the first main meal of the day Orally twice a day Active Social History Tobacco Use: Social History Observation Description Date Details (start date - stop date) Never Smoker NA - NA Tobacco Use: Question Answer Notes Are you a: never smoker Additional Findings: Tobacco Non-User Aggressive non-smoker Alcohol Screening: Question Answer Notes Did you have a drink contain ing alcohol in the past year? Yes How often did you have a dri nk containing alcohol in the past year? Two to four times a month (2 points) How many drinks did you have on a typical day when you were drinking in the past year? 1 or 2 (0 points) How often did you have six o r more drinks on one occasion in the past year? 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) (053389885) Sensorineural hearing loss, bilateral (H90.3) Active confirmed Problem Bilateral tinnitus (0927461177295) Tinnitus, bilateral (H93.13) Active confirmed Problem Acute sinusitis (04429216) Acute sinusitis, unspecified (J01.90) Active confirmed Problem Deviated nasal septum (189981176) Deviated nasal septum (J34.2) Active confirmed Problem Hypertrophy of nasal turbinates (29413161) Hypertrophy of nasal turbinates (J34.3) Active confirmed Problem Snoring (89816352) Snoring (R06.83) Active confirmed Problem Nasal congestion (57746211) Nasal congestion (R09.81) Active confirmed Problem Localized swelling, mass and lump, neck (R22.1) Active confirmed Plan Of Treatment No Information Insurance Providers Payer Name Payer Address Payer Phone Subscriber Number Group Number Insured Name Patient Relationship to Insured Coverage Start Date Coverage End Date MEDICARE [place] PART B [address] [place] [address] [id number] SHERIF BUTTERFIELD Self - patient is the insured [employer] [address] [place] [address] [id number] SHERIF BUTTERFIELD Self - patient is the insured Medical (General) History Medical History History ICD Code hypercholesterolemia prostate cancer Surgical History Surgery Date(Month/Year) deviated septum repair
== END 2024-12-14 09:15 | disposition home or self-care (01) ==
LOC: HO.HMCFM 08:24
PROVIDERS: PCP Family Medicine; Visit Provider Family Medicine
DX: E11.9 Type 2 diabetes mellitus without complications (principal)

== ENCOUNTER → 2024-12-14 08:23 | Outpatient (BNVA) | payer MEDICARE, OTHER, SELFPAY | PROVIDERS: PCP Family Medicine; Visit Provider Family Medicine | DX: I10 Essential (primary) hypertension (principal); E11.9 Type 2 diabetes mellitus without complications; E55.9 Vitamin D deficiency, unspecified; L08.9 Local infection of the skin and subcutaneous tissue, unspecified; N28.89 Other specified disorders of kidney and ureter | CPT/HCPCS: 83036; 99212 ==

== ENCOUNTER 2025-01-06 08:25 | Outpatient (REF) | payer MEDICARE, OTHER, SELFPAY ==
--- NOTE | ~2025-01-06 | XR_ITS ---
EXAMINATION: XR HIP, LEFT CLINICAL INFORMATION: M25.552 - Pain in left hip COMPARISON: None available. TECHNIQUE: AP view pelvis. AP and oblique views of the left hip. FINDINGS: Bony pelvis is intact. Multiple linear thin metallic structures overlapping the symphysis pubis likely prostatic seen for local radiation therapy. No acute fracture or dislocation, left hip. Joint space narrowing involving the coxofemoral joints and both hips with mild sclerosis along the articular surface of the acetabulum.. Spondylosis Vascular calcifications, aorta and the femoral arteries. 15 mm blastic lesion in the proximal diaphysis of the right femur no fully included in the [id number].. XR/XR hip LT w PEL1V IMPRESSION: Osteoarthrosis/osteoarthritis, mild, both hips. 15 mm blastic lesion proximal diaphysis right femur. No acute fracture or dislocation, left hip. Atherosclerosis disease. Spondylosis, lumbar spine. Electronically signed by: Wing Khanna MD 01/06/2025 09:20 AM EDT
== END 2025-01-06 08:26 | disposition home or self-care (01) ==
LOC: HO.HMGCX 08:25
PROVIDERS: PCP Family Medicine; Visit Provider Physician Assistant
DX: M76.32 Iliotibial band syndrome, left leg (principal); Z79.899 Other long term (current) drug therapy
CPT/HCPCS: 73502; 99212

== ENCOUNTER 2025-01-06 08:25 | Outpatient (AMB) | payer MEDICARE, OTHER, SELFPAY ==
[2025-01-06 08:33] VITALS: BP 160/98; PULSE 67; TEMP 36.6; O2SAT 97; BMI 32.3
--- NOTE | 2025-01-06 08:33 | AM.OFFWIN_ITS ---
Intake Vital Signs 01/06/25 08:33 Height 5 ft 6 in Weight 200 lb BMI 32.3 BP 160/98 H Blood Pressure Location Lt brachial Position Sitting Pulse 67 Pulse Source Pulse Oximeter Temp 97.8 F Temp Source Oral Pulse Oximetry (%) 97 Oxygen Delivery Method Room Air Intake Visit Reasons: EP Pain in left Hip and left leg Intake Note: Patient presents with c/o left hip & left leg pain x1 month Patient Tobacco Use Status: Former Tobacco user Allergies No Known Allergies Allergy (Verified 01/06/25 08:37) HPI HPI Comments History of Present Illness Details History of Present Illness - The patient is an 84-year-old male pre senting with left hip pain and associated discomfort in the left thigh. - History of Problem: The patient report s experiencing pain in the left hip and front thigh, describing the sensation as tightness and discomfort when stretching the leg. - The pain is persistent, occurring / , with some relief noted when sitting or using Tylenol and ibuprofen. - The patient is uncertain if the condit ion is improving or worsening, but notes that the pain is less noticeable when preoccupied with activities. - Relief is achieved by crossing the rig ht leg over the left while sitting, and by using pnal-iso-vreilxw medications such as Tylenol and ibuprofen. - The patient denies any groin pain or u rinary changes, and reports no increased use of the knee or hip. Review of Systems - Musculoskeletal: Reports persistent le ft hip and thigh pain, denies groin pain. - Genitourinary: Denies urinary changes. All systems reviewed and are unremarkable except as noted in HPI Physical Exam General: cooperative, healthy appearing and comfortable, patient oriented x3 Head: Yes normal to inspection and Yes normocephalic General nose exam: Normal external nose present Face and sinus: Yes normal facial exam Effort & Inspection: normal respiratory effort and able to speak in complete sentences Back/spine: cervical, thoracic and lumbar spine normal to inspection cervical ROM normal, thoracic ROM normal, lumbar ROM normal Extremities: Straight leg raise test negative on right; Straight leg raise test negative on left; motor strength normal bilaterally, sensation intact bilaterally, TTP along left lateral leg, negative left hip lateral ttp Neurological: A&O x3, gait normal [facility] Medical History (Updated 01/06/25 @ 08:59 by Lisa Kuo PA-C) BPH (benign prostatic hyperplasia) Gross hematuria History of prostate cancer Pure hypercholesterolemia Essential hypertension Type 2 diabetes mellitus Arthritis Hypercholesteremia HTN (hypertension) GERD (gastroesophageal reflux disease) Bilateral knee pain Surgical History History of bilateral knee replacement History of appendectomy Family History Father Substance use Alcoholism Social History (Updated 12/14/24 @ 08:50 by Morenita Clements CMA) Housing: House Alcohol intake: current Patient Tobacco Use Status: Former Tobacco user Tobacco use type: Cigar Years Smoked: Once in awhile in the past e-Cigarette/Vaping Use: Never Used Second Hand Smoke Exposure: No service: No Current occupational status: retired Cognitive needs: No Hearing needs: Yes (hearing aids) Vision needs: No Physical Exam Vital Signs: Last Vital Signs Temp 97.8 F 01/06/25 08:33 Pulse 67 01/06/25 08:33 BP 160/98 H 01/06/25 08:33 Pulse Ox 97 01/06/25 08:33 Oxygen Delivery Method Room Air 01/06/25 08:33 BMI result Body Mass Index 32.3 Assessment & Plan Assessment & Plan (1) Iliotibial band syndrome: Code(s): M76.30 - Iliotibial band syndrome, unspecified leg Qualifiers: Laterality: left Qualified Code(s): M76.32 - Iliotibial band syndrome, left leg Plan: Assessment and Plan Iliotibial Band Syndrome - The patient is suspected to have IT band syndrome, likely due to overuse over the summer. - Conservative management with ice, rest, and NSAIDs can be continued. - An x-ray is ordered to ensure no underlying hip pathology. - As conservative measures have failed, physical therapy is recommended and has been ordered. - Follow up with PCP if no improvement in pain after treatment. Patient was informed and verbally consented to the use of an ambient scribe for clinic note documentation during this visit. Orders: Orders XR hip LT w PEL1V Today M25.552 - Pain in left hip PT Evaluation and Treatment Today M76.30 - Iliotibial band syndrome, unspecified leg Coding Level of Care Code Est Pt Level 4 (75630) Diagnoses Iliotibial band syndrome of left side M76.32 Laterality: left
--- OUTSIDE RECORDS SUMMARY | 2025-01-06 08:57 | XMS_ITS | Patient Health Record ---
Author Organization [facility] & [facility], [place] Address [address] [place] [address] Care Team Providers Care Power Sweeper Operator Name Role Phone Sánchez Frances DO Primary Care Provider DAJA Neff Unavailable [phone] Allergies No Known Allergies Reason For Referral No Information Medications Medication SIG (Take, Route, Frequency, Duration) Notes Start Date End Date Status Fluticasone Propionate 50 MCG/ACT Suspension 1 spray in each nostril Nasally twice a day (bid); Duration: 30 day(s) 02/01/2015 Active Fish Oil 1000 MG Capsule 1 capsule Orall y Once a day Active Lisinopril 20 MG Tablet 1 tablet Orally Once a day Active Simvastatin 40 MG Tablet 1 tablet in the evening Orally Once a day Active Daily Vitamin Tablet 1 tablet Orally Onc e a day Active amLODIPine Besylate 2.5 MG Tablet 1 tablet Orally Once a day Active Glimepiride 2 MG Tablet 1 tablet with br eakfast or the first main meal of the day Orally twice a day Active Social History Tobacco Use: Social History Observation Description Date Details (start date - stop date) Never Smoker NA - NA Social History Social History Social Info Question Answer Notes Alcohol Screening: Did you have a drink containing alcohol in the past year? Yes How often did you have a drink containing alcohol in the past year? Two to four times a month (2 points) How many drinks did you have on a typical day when you were drinking in the past year? 1 or 2 (0 points) How often did you have six or more drinks on one occasion in the past year? 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) (230179966) Sensorineural hearing loss, bilateral (H90.3) Active confirmed Problem Bilateral tinnitus (6280343643927) Tinnitus, bilateral (H93.13) Active confirmed Problem Acute sinusitis (03734408) Acute sinusitis, unspecified (J01.90) Active confirmed Problem Deviated nasal septum (642106061) Deviated nasal septum (J34.2) Active confirmed Problem Hypertrophy of nasal turbinates (98702136) Hypertrophy of nasal turbinates (J34.3) Active confirmed Problem Snoring (55249786) Snoring (R06.83) Active confirmed Problem Nasal congestion (09433738) Nasal congestion (R09.81) Active confirmed Problem Localized swelling, mass and lump, neck (R22.1) Active confirmed Plan Of Treatment No Information Insurance Providers Payer Name Payer Address Payer Phone Subscriber Number Group Number Insured Name Patient Relationship to Insured Coverage Start Date Coverage End Date MEDICARE [place] PART [address] [place] [address] [id number] SHERIF BUTTERFIELD Self - patient is the insured [employer] [address] [place] [id number] SHERIF BUTTERFIELD Self - patient is the insured Medical (General) History Medical History History ICD Code hypercholesterolemia prostate cancer Surgical History Surgery Date(Month/Year) deviated septum repair
--- OUTSIDE RECORDS SUMMARY | 2025-01-06 08:57 | XMS_ITS | Patient Health Record ---
Author Organization [facility] Address [address] [place] [address] Care Team Providers Care Automation Developer Name Role Phone Sánchez Frances D.O. 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) Active confirmed Problem History of polyp of colon (255377286) Personal history of colonic polyps (Z86.010) Active confirmed Problem Hiatal hernia (31562385) Hiatal hernia (K44.0) Active confirmed Problem Obesity (209997398) Obesity (E66.9) Active confirmed Problem Gastroesophageal reflux disease (364299113) GERD (gastroesophag eal reflux disease) (K21.9) Active confirmed Plan Of Treatment No Information Insurance Providers Payer Name Payer Address Payer Phone Subscriber Number Group Number Insured Name Patient Relationship to Insured Coverage Start Date Coverage End Date [place] [address] [address] [place] [address] [id number] [place] 020 SHERIF BUTTERFIELD Self - patient is the insured [employer] Insurance [address] [place] [address] [id number] SHERIF BUTTERFIELD Self - patient is the insured Medical (General) History Medical History History ICD Code high blood pressure DIABETES Surgical History Surgery Date(Month/Year) knee surgery colonoscopy 10 yrs ago
--- OUTSIDE RECORDS SUMMARY | 2025-01-06 08:57 | XMS_ITS | Clinical Summary ---
Author Organization [facility] Address [address] [place] [address] Phone Care Team Providers Care Animal Ecologist Name Role Phone Tyrell Carrasco MD Primary [...] 2 diabetes mellitus wit h diabetic neuropathy (CMS/[facility] V24, CMS/[facility] V28) 12/13/2023 Vitamin D deficiency [...] 03/09/2024 8:22 AM EST Plan of Treatment Health Maintenance Due Date Last Done Comments [...] topic Insurance MEDICARE COMMERCIAL GENERIC Care Teams Animal Ecologist Relationship Specialty Start Date End Date Tyrell Carrasco MD [address] [place] [address] Dr Jennifer MA PCP - General 10/01/23
== END 2025-01-06 09:52 | disposition home or self-care (01) ==
PROVIDERS: PCP Family Medicine; Visit Provider Physician Assistant
DX: M76.32 Iliotibial band syndrome, left leg (principal)

== ENCOUNTER → 2025-01-06 09:07 | Outpatient (BNV) | payer MEDICARE, OTHER, SELFPAY | PROVIDERS: PCP Family Medicine; Visit Provider Radiology Diagnostic Radiology | DX: M17.0 Bilateral primary osteoarthritis of knee (principal); I25.10 Atherosclerotic heart disease of native coronary artery without angina pectoris; M89.8X5 Other specified disorders of bone, thigh; M47.816 Spondylosis without myelopathy or radiculopathy, lumbar region | CPT/HCPCS: 73502 ==

== ENCOUNTER 2025-01-21 09:08 | Outpatient (AMB) | payer MEDICARE, OTHER, SELFPAY ==
--- NOTE | 2025-01-21 09:26 | MHC.PC.OV ---
Vital Signs 01/21/25 09:29 Height 5 ft 6 in Weight 203 lb BMI 32.8 BP 130/66 Blood Pressure Location Rt brachial Position Sitting Respiration 14 Pulse 69 Pulse Source Pulse Oximeter Temp 98.2 F Temp Source Oral Pulse Oximetry (%) 98 Oxygen Delivery Method Room Air Intake Visit Reasons: Discuss Bone Scan ordered. Intake Note: patient is scheduled to review x-ray of his hip/pelvis Sandwich Machine Operator Required: No Allergies No Known Allergies Allergy (Verified 01/21/25 09:28) Medication List - Last Reconciled 01/21/25 by Tyrell Carrasco MD amlodipine 10 mg PO DAILY 90 days cholecalciferol (vitamin D3) 50 mcg PO DAILY glimepiride 2 mg PO BID 90 days lisinopril 20 mg PO DAILY 90 days mecobalamin (vitamin B12) mcg PO multivitamin 1 tab PO DAILY mupirocin 2% (Centany) 1 appl topical BID 14 days omega-3 fatty acids 1,000 mg PO DAILY omeprazole 20 mg PO DAILY 90 days simvastatin 40 mg PO .hs Tobacco use date assessed: 12/14/24 Dental Screening Dental Screen Date: 08/12/24 HPI Discuss Bone Scan ordered. HPI Details 84 y/o male presents to f/u xray for hip pain. Had visited a walk in clinic for L hip pain and associated discomfort in L thigh. They had noted pt suspected to have IT band syndrome - likely due to overuse over the summer. Hip xray 01/06/25: IMPRESSION: Osteoarthrosis/osteoarthritis, mild, both hips. 15 mm blastic lesion proximal diaphysis right femur. No acute fracture or dislocation, left hip. Atherosclerosis disease. Spondylosis, lumbar spine. Hx of prostate cancer. [facility] Medical History (Updated 01/21/25 @ 10:09 by Tyrell Carrasco MD) BPH (benign prostatic hyperplasia) Gross hematuria History of prostate cancer Pure hypercholesterolemia Essential hypertension Type 2 diabetes mellitus Arthritis Hypercholesteremia HTN (hypertension) GERD (gastroesophageal reflux disease) Bilateral knee pain Surgical History History of bilateral knee replacement History of appendectomy Family History Father Substance use Alcoholism Social History (Updated 12/14/24 @ 08:50 by Morenita Clements CMA) Housing: House Alcohol intake: current Patient Tobacco Use Status: Former Tobacco user Tobacco use type: Cigar Years Smoked: Once in awhile in the past e-Cigarette/Vaping Use: Never Used Second Hand Smoke Exposure: No service: No Current occupational status: retired Cognitive needs: No Hearing needs: Yes (hearing aids) Vision needs: No Questionnaire Thrive Questionnaire Date Thrive assessed: 04/29/24 I am a: Patient What is your living situation today?: I have a steady place to live Within the past 12 months, did the food you bought not last and you didn't have the money to get more?: Never true Within the past 12 months, did you worry whether your food would run out before you got money to buy more?: Never true Do you have trouble paying for medicines?: No Do you have trouble getting transportation to medical appointments?: No Do you have trouble paying your heating and electricity bill?: No Do you have trouble taking care of your child, family member or friend?: No Do you have trouble with day-to-day activities such as bathing, preparing meals, shopping, managing finances, etc.?: No Are you currently unemployed and looking for a job?: No Are you interested in more education?: No Please select the resources that you would like help with: None Currently or been in a relationship where the following occur: No concerns reported THRIVE Score: 0 EUGENE-7 AMB Questionnaire EUGENE-7 Date EUGENE - 7 assessed: 02/03/24 Source: Developed by Drs. Fred Rhodes, Gregoria Welch, Timoteo Bunn and colleagues, with an educational maria r from [employer]. Physical exam (Primary Care) Vital Signs: Last Vital Signs Temp 98.2 F 01/21/25 09:29 Pulse 69 01/21/25 09:29 Resp 14 01/21/25 09:29 BP 130/66 01/21/25 09:29 Pulse Ox 98 01/21/25 09:29 Oxygen Delivery Method Room Air 01/21/25 09:29 BMI result Body Mass Index 32.8 Tobacco/Smoking Status: Tobacco use Status Tobacco use date assessed 12/14/24 01/21/25 09:27 Patient Tobacco Use Status Former Tobacco user 01/21/25 09:27 Tobacco use type Cigar 01/21/25 09:27 e-Cigarette/Vaping Use Never Used 01/21/25 09:27 Thrive Assessment: Date of Thrive Assessment Date Thrive assessed 04/29/24 01/21/25 09:27 Currently or been in a relationship where the following occur: No concerns reported Coding Level of Care Code Est Pt Level 4 (81957) Diagnoses Hip pain M25.559 Iliotibial band syndrome of left side M76.32 Laterality: left Renal cyst N28.1 Abnormal x-ray of femur R93.6 History of prostate cancer Z85.46 Assessment & Plan Assessment & Plan (1) Hip pain: Code(s): M25.559 - Pain in unspecified hip Category: Medical Plan: Patient has significant left hip pain and IT band syndrome Start physical therapy Can use meloxicam and a muscle relaxer - cautioned recommended Can also use some Tylenol Will follow-up in 2 months - sooner if not improving (2) IT band syndrome: Code(s): M76.30 - Iliotibial band syndrome, unspecified leg Category: Medical Qualifiers: Laterality: left Qualified Code(s): M76.32 - Iliotibial band syndrome, left leg Plan: As above (3) Renal cyst: Code(s): N28.1 - Cyst of kidney, acquired Category: Medical Plan: Followed by urology and stable (4) Abnormal x-ray of femur: Code(s): R93.6 - Abnormal findings on diagnostic imaging of limbs Category: Medical (5) History of prostate cancer: Code(s): Z85.46 - Personal history of malignant neoplasm of prostate Category: Medical Plan Patient with history of prostate cancer and brachytherapy. Incidental finding of blastic lesion on right proximal femur. Patient denies pain. Will check MRI Follow-up with patient after MRI Orders: Orders PT Evaluation and Treatment Today M25.552 - Pain in left hip MR hip RT wo/w con Today R93.6 - Abnormal findings on diagnostic imaging of limbs, Z85.46 - Personal history of malignant neoplasm of prostate Medications: New cyclobenzaprine 10 mg PO .qhs PRN 14 tabs 0RF muscle spasm 14 days meloxicam 15 mg PO DAILY 30 tabs 2RF 30 days
[2025-01-21 09:29] VITALS: BP 130/66; PULSE 69; RESP 14; TEMP 36.8; O2SAT 98; BMI 32.8
--- OUTSIDE RECORDS SUMMARY | 2025-01-21 10:06 | XMS_ITS | Clinical Summary ---
Author Organization [facility] Address [address] [place] [address] Phone Care Team Providers Care Lens Grinder Apprentice Name Role Phone Tyrell Carrasco MD Primary [...] 2 diabetes mellitus wit h diabetic neuropathy (CMS/[facility] V24, [facility] V28) 12/13/2023 Vitamin D deficiency 12/13/2023 Social [...] Depression Screening 03/11/2024 COVID-19 Vaccine ( - 2024-2 6 season) 2024 Influenza Vaccine (#1) 2024 01/22/2024 [...] topic Insurance MEDICARE COMMERCIAL GENERIC Care Teams Lens Grinder Apprentice Relationship Specialty Start Date End Date Tyrell Carrasco MD [address] [place] [address] Dr Jennifer MA PCP - General 10/01/23
--- OUTSIDE RECORDS SUMMARY | 2025-01-21 10:06 | XMS_ITS | Patient Health Record ---
Author Organization [facility] Address [address] [place] [address] Care Team Providers Care Rotary Machine Operator Name Role Phone Sánchez Frances D.O. Primary Care Provider Emily vailable Reason For Referral No Information Medications Medication SIG (Take, Route, Frequency, Duration) Notes Start Date End Date Status Simvastatin Active Lisinopril Active Omeprazole 20 MG TAKE 1 CAPSULE BY 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) Active confirmed Problem History of polyp of colon (091761725) Personal history of colonic polyps (Z86.010) Active confirmed Problem Hiatal hernia (52900856) Hiatal hernia (K44.0) Active confirmed Problem Obesity (965149400) Obesity (E66.9) Active confirmed Problem Gastroesophageal reflux disease (565704420) GERD (gastroesophag eal reflux disease) (K21.9) Active confirmed Plan Of Treatment No Information Insurance Providers Payer Name Payer Address Payer Phone Subscriber Number Group Number Insured Name Patient Relationship to Insured Coverage Start Date Coverage End Date Medicare [place] [address] [address] [place] [address] [id number] [place] 020 SHERIF BUTTERFIELD Self - patient is the insured [employer] Insurance [address] [place] [id number] SHERIF BUTTERFIELD Self - patient is the insured Medical (General) History Medical History History ICD Code high blood pressure DIABETES Surgical History Surgery Date(Month/Year) knee surgery colonoscopy 10 yrs ago
--- OUTSIDE RECORDS SUMMARY | 2025-01-21 10:06 | XMS_ITS | Patient Health Record ---
Author Organization [facility] [place] Address [address] [place] [address] Care Team Providers Care Business Office Director Name Role Phone Sánchez Frances DO Primary Care Provider DAJA Neff Unavailable [phone] Allergies No Known Allergies Reason For Referral [...] Problem Status W/U Status Risk Notes Problem Nasal congestion (32133620) Nasal congestion (R09.81) Active confirmed Problem Hypertrophy of nasal turbinates (28166093) Hypertrophy of nasal turbinates (J34.3) Active confirmed Problem Impacted cerumen (83894159) Impacted cerumen, bilateral (H61.23) Active confirmed Problem Bilateral tinnitus (8647565281524) Tinnitus, bilateral (H93.13) Active confirmed Problem Sensorineural hearing loss of bilateral ears (disorder) (318685378) Sensorineural hearing loss, bilateral (H90.3) Active confirmed Problem Acute sinusitis (86170162) Acute sinusitis, unspecified (J01.90) Active confirmed Problem Deviated nasal septum (603205156) Deviated nasal septum (J34.2) Active confirmed Problem Snoring (32988003) Snoring (R06.83) Active confirmed Problem Localized swelling, mass and lump, neck (R22.1) Active confirmed Plan Of Treatment No Information Insurance Providers Payer Name Payer Address Payer Phone Subscriber Number Group Number Insured Name Patient Relationship to Insured Coverage Start Date Coverage End Date MEDICARE [place] PART [address] [place] [address] [id number] SHERIF BUTTERFIELD Self - patient is the insured [employer] [address] [place] [address] [id number] SHERIF BUTTERFIELD Self - patient is the insured Medical (General) History Medical History History ICD Code hypercholesterolemia prostate cancer Surgical History Surgery Date(Month/Year) deviated septum repair
== END 2025-01-21 10:05 | disposition home or self-care (01) ==
LOC: HO.HMCFM 09:09
PROVIDERS: PCP Family Medicine; Visit Provider Family Medicine
DX: M25.559 Pain in unspecified hip (principal); M76.32 Iliotibial band syndrome, left leg; N28.1 Cyst of kidney, acquired; R93.6 Abnormal findings on diagnostic imaging of limbs; Z85.46 Personal history of malignant neoplasm of prostate

== ENCOUNTER → 2025-01-21 09:08 | Outpatient (BNVA) | payer MEDICARE, OTHER, SELFPAY | PROVIDERS: PCP Family Medicine; Visit Provider Family Medicine | DX: M25.552 Pain in left hip (principal); M76.32 Iliotibial band syndrome, left leg; N28.1 Cyst of kidney, acquired; R93.6 Abnormal findings on diagnostic imaging of limbs; Z85.46 Personal history of malignant neoplasm of prostate | CPT/HCPCS: 99212 ==

== ENCOUNTER 2025-01-29 08:38 | Outpatient (AMB) | payer MEDICARE, OTHER, SELFPAY ==
[2025-01-29 08:41] VITALS: BP 140/90; PULSE 85; TEMP 36.6; O2SAT 98; BMI 32.8
--- NOTE | 2025-01-29 08:41 | MHC.OFFWIV ---
Intake Vital Signs 01/29/25 08:41 Height 5 ft 6 in Weight 203 lb BMI 32.8 BP 140/90 H Blood Pressure Location Lt brachial Position Sitting Pulse 85 Pulse Source Pulse Oximeter Temp 97.8 F Temp Source Oral Pulse Oximetry (%) 98 Oxygen Delivery Method Room Air Intake Visit Reasons: EP Left leg pain Intake Note: pt presents with worsening left leg pain ongoing for a few months- reinjured a few days ago- last seen in walk-in 01/06- was unable to go through MRI d/t not being able to straighten leg out. Meloxicam and Cyclobenzaprine not helpful. Patient Tobacco Use Status: Former Tobacco user Allergies No Known Allergies Allergy (Verified 01/29/25 08:55) Do you need a note to return to daycare/school/sports/work: No HPI EP Left leg pain HPI Details 84 year old male patient presents to the [facility] clinic today with ongoing left leg pain. He was seen at the [facility] on 01/06 for this. It was felt he had IT band syndrome due to overuse injury. XR was taken and showed mild OA of both hips, no acute fracture. Incidental finding however of 15 mm blastic lesion proximal diaphysis right femur. History of prostate CA. He then followed up with his PCP Dr. Carrasco who ordered MRI of the hip w/wo contrast. Patient states he was unable to complete this exam since he was unable to get into position and straighten his left leg to get into the machine properly. Patient is awaiting call to start PT. He has been having some benefit from cyclobenzaprine and meloxicam, however has been taking them sparingly. His reports patient was trying to move some outdoor furniture a few days ago and exacerbated left hip pain. [facility] Medical History BPH (benign prostatic hyperplasia) Gross hematuria History of prostate cancer Pure hypercholesterolemia Essential hypertension Type 2 diabetes mellitus Arthritis Hypercholesteremia HTN (hypertension) GERD (gastroesophageal reflux disease) Bilateral knee pain Surgical History History of bilateral knee replacement History of appendectomy Family History Father Substance use Alcoholism Social History Housing: House Alcohol intake: current Patient Tobacco Use Status: Former Tobacco user Tobacco use type: Cigar Years Smoked: Once in awhile in the past e-Cigarette/Vaping Use: Never Used Second Hand Smoke Exposure: No service: No Current occupational status: retired Cognitive needs: No Hearing needs: Yes (hearing aids) Vision needs: No Review of Systems Const All systems reviewed & are unremarkable except as noted in HPI and below Physical Exam Vital Signs: Last Vital Signs Temp 97.8 F 01/29/25 08:41 Pulse 85 01/29/25 08:41 BP 140/90 H 01/29/25 08:41 Pulse Ox 98 01/29/25 08:41 Oxygen Delivery Method Room Air 01/29/25 08:41 BMI result Body Mass Index 32.8 Const General: cooperative and healthy appearing Limitations: ambulation with cane Resp Effort & Inspection: normal respiratory effort Back/Spine/Pelvis Other: normal C/T/L ROM Skin General skin exam: no rashes or lesions noted Extrem Other: Straight leg raise test negative on right; Straight leg raise test negative on left; motor strength normal bilaterally, sensation intact bilaterally, TTP along left lateral leg, negative left hip lateral ttp General: Yes capillary refill normal and Yes no clubbing, cyanosis or edema Psych Appearance: grossly normal Mental Status: mental status grossly normal Speech and movement: Normal speech and movement present Assessment & Plan Assessment & Plan (1) Left hip pain: Code(s): M25.552 - Pain in left hip Plan: Patient has ongoing left hip pain, which he exacerbated this past week in moving some outdoor furniture. He unfortunately was unable to complete MRI for his right hip, due evaluate incidental blastic lesion finding, as he was unable to tolerate the positioning for MRI machine due to pain in the left hip. He would like to try again in a few weeks, after he starts some physical therapy. Plan to retry MRI at [facility] (was at [facility] previously). He will then follow up with PCP Dr. Carrasco as scheduled. I am going to refill his cyclobenzaprine, as he has been having some benefit from this. I administered him a Toradol injection in the office today. We reviewed indications, use, possible s/e of this. He is not going to concurrently take meloxicam though I advised he may take Tylenol. Discussed that if symptoms worsen in the meantime, he may return to the walk-in clinic for further evaluation or follow up with PCP. Orders: Orders AMB Ketorolac Injection Today M25.552 - Pain in left hip Medications: New ketorolac 30 mg IM ONCE 1 mL 0RF hip pain M25.552 - Pain in left hip Changed From cyclobenzaprine 10 mg PO .qhs 14 days PRN 14 tabs 0RF muscle spasm M25.552 - Pain in left hip, M76.32 - Iliotibial band syndrome, left leg To cyclobenzaprine 10 mg PO BEDTIME PRN 14 tabs 0RF muscle spasm 14 days M25.552 - Pain in left hip, M76.32 - Iliotibial band syndrome, left leg Coding Level of Care Code Est Pt Level 4 (19059) Diagnoses Left hip pain M25.552
--- OUTSIDE RECORDS SUMMARY | 2025-01-29 08:43 | XMS_ITS | Patient Health Record ---
Author Organization [facility] Address [address] [place] [address] Care Team Providers Care Entry Level Buyer Name Role Phone Sánchez Frances D.O. Primary Care Provider Emily vailable Reason For Referral No Information Medications Medication SIG (Take, Route, Frequency, Duration) Notes Start Date End Date Status Simvastatin Active Lisinopril Active Omeprazole 20 MG Capsule Delayed Release TAKE 1 CAPSULE BY MOUTH ONCE DAILY 30 MINS BEFORE A MEAL; Duration: 90 Active amLODIPine Besy-Benazepril HCl Active Glimepiride Active Ferrex 150 Active Social History Tobacco Use: Social History Observation Description Date Details (start date - stop date) Never Smoker NA - NA Social History Drugs/Alcohol: Social Info Question Answer Notes Alcohol Screen (Audit-C) Did you have a drink containing alcohol in the past year? Yes How often did you have a drink containing alcohol in the past year? 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) Active confirmed Problem History of polyp of colon (676971478) Personal history of colonic polyps (Z86.010) Active confirmed Problem Hiatal hernia (97456401) Hiatal hernia (K44.0) Active confirmed Problem Obesity (001652723) Obesity (E66.9) Active confirmed Problem Gastroesophageal reflux disease (590537708) GERD (gastroesophag eal reflux disease) (K21.9) Active confirmed Plan Of Treatment No Information Insurance Providers Payer Name Payer Address Payer Phone Subscriber Number Group Number Insured Name Patient Relationship to Insured Coverage Start Date Coverage End Date [place] [address] [address] [place] [address] [id number] [place] [id number] SHERIF BUTTERFIELD Self - patient is the insured [employer] Insurance [address] [place] [address] [phone] [id number] SHERIF BUTTERFIELD Self - patient is the insured Medical (General) History Medical History History ICD Code high blood pressure DIABETES Surgical History Surgery Date(Month/Year) knee surgery colonoscopy 10 yrs ago
--- OUTSIDE RECORDS SUMMARY | 2025-01-29 08:43 | XMS_ITS | Patient Health Record ---
Author Organization [facility] [place] Address [address] [place] [address] Care Team Providers Care Lidar Analyst Name Role Phone Sánchez Frances DO Primary Care Provider DAJA Neff Unavailable [phone] Allergies No Known Allergies Reason For Referral [...] W/U Status Risk Notes Problem Impacted cerumen (05518388) Impacted cerumen, bilateral (H61.23) Active confirmed Problem Sensorineural hearing loss of bilateral ears (disorder) (403506945) Sensorineural hearing loss, bilateral (H90.3) Active confirmed Problem Bilateral tinnitus (3234926762621) Tinnitus, bilateral (H93.13) Active confirmed Problem Acute sinusitis (06977013) Acute sinusitis, unspecified (J01.90) Active confirmed Problem Deviated nasal septum (402931683) Deviated nasal septum (J34.2) Active confirmed Problem Hypertrophy of nasal turbinates (57304272) Hypertrophy of nasal turbinates (J34.3) Active confirmed Problem Snoring (60230146) Snoring (R06.83) Active confirmed Problem Nasal congestion (68092547) Nasal congestion (R09.81) Active confirmed Problem Localized swelling, mass and lump, neck (R22.1) Active confirmed Plan Of Treatment No Information Insurance Providers Payer Name Payer Address Payer Phone Subscriber Number Group Number Insured Name Patient Relationship to Insured Coverage Start Date Coverage End Date MEDICARE [place] PART [address] [place] [address] [id number] SHERIF BUTTERFIELD Self - patient is the insured [employer] [address] [place] [id number] SHERIF BUTTERFIELD Self - patient is the insured Medical (General) History Medical History History ICD Code hypercholesterolemia prostate cancer Surgical History Surgery Date(Month/Year) deviated septum repair
--- OUTSIDE RECORDS SUMMARY | 2025-01-29 08:43 | XMS_ITS | Clinical Summary ---
Author Organization [address] [facility] Address [address] [place] [address] Phone Care Team Providers Care Book Binder Name Role Phone Tyrell Carrasco MD Primary [...] diabetes mellitus wit h diabetic neuropathy (CMS/[facility] V24, CMS/[facility] V28) 12/13/2023 Vitamin D deficiency [...] topic Insurance MEDICARE COMMERCIAL GENERIC Care Teams Book Binder Relationship Specialty Start Date End Date Tyrell Carrasco MD [address] [place] [address] Dr Jennifer MA PCP - General 10/01/23
== END 2025-01-29 09:56 | disposition home or self-care (01) ==
PROVIDERS: PCP Family Medicine; Visit Provider Nurse Practitioner Family
DX: M25.552 Pain in left hip (principal)

== ENCOUNTER → 2025-01-29 08:38 | Outpatient (BNVA) | payer MEDICARE, OTHER, SELFPAY | PROVIDERS: PCP Family Medicine; Visit Provider Nurse Practitioner Family | DX: M25.552 Pain in left hip (principal) | CPT/HCPCS: 99212 ==

== ENCOUNTER → 2025-02-23 09:52 | Outpatient (REF) | payer MEDICARE, OTHER, SELFPAY ==
--- NOTE | ~2025-02-23 | NM_ITS ---
EXAMINATION: NM BONE SCAN WHOLE BODY HISTORY: PAIN IN LEFT HIP. TECHNIQUE: A total body bone scan was performed following the intravenous administration of 32 mCi technetium 99m-MDP. COMPARISON: Correlation is made with plain films of the pelvis dated 01/06/2025. FINDINGS: No abnormality is seen in the proximal right femoral diaphysis to correspond to the sclerotic focus noted on plain films. Multiple foci of increased uptake are seen in the cervical and thoracolumbar spine which are likely degenerative in nature. Activity at the elbows and ankles as well as the toes likely represent osteoarthritis. 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 There is normal bilateral renal uptake. NM/NM bone scan whole body IMPRESSION: No abnormal uptake is seen in the proximal right femoral diaphysis to correspond to the sclerotic focus seen on plain films. As this was seen on only one view, it is uncertain if this is a real finding. Dedicated plain films of the right hip are recommended. Electronically signed by: Fred Oakley MD 02/23/2025 02:26 PM [facility]
--- OUTSIDE RECORDS SUMMARY | 2025-02-23 11:54 | XMS_ITS | Patient Health Record ---
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 Problem History of polyp of colon (738211562) Personal history of colonic polyps (Z86.010) Active confirmed Problem Hiatal hernia (69706932) Hiatal hernia (K44.0) Active confirmed Problem Obesity (317730898) Obesity (E66.9) Active confirmed Problem Gastroesophageal reflux disease (982256955) GERD (gastroesophag eal reflux disease) (K21.9) Active confirmed Plan Of Treatment No Information Insurance Providers Payer Name Payer Address Payer Phone Subscriber Number Group Number Insured Name Patient Relationship to Insured Coverage Start Date Coverage End Date [place] [address] [address] [place] [address] [id number] SHERIF BUTTERFIELD Self - patient is the insured [employer] [address] [place] [address] [id number] SHERIF BUTTERFIELD Self - patient is the insured Medical (General) History Medical History History ICD Code high blood pressure DIABETES Surgical History Surgery Date(Month/Year) knee surgery colonoscopy 10 yrs ago
--- OUTSIDE RECORDS SUMMARY | 2025-02-23 11:54 | XMS_ITS | Patient Health Record ---
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 Role Phone Sánchez Frances DO Primary Care Provider DAJA Neff Unavailable [phone] Allergies No Known Allergies Reason For Referral [...] W/U Status Risk Notes Problem Impacted cerumen (85378260) Impacted cerumen, bilateral (H61.23) Active confirmed Problem Sensorineural hearing loss of bilateral ears (disorder) (090693394) Sensorineural hearing loss, bilateral (H90.3) Active confirmed Problem Bilateral tinnitus (0901941814222) Tinnitus, bilateral (H93.13) Active confirmed Problem Acute sinusitis (71587513) Acute sinusitis, unspecified (J01.90) Active confirmed Problem Deviated nasal septum (393443029) Deviated nasal septum (J34.2) Active confirmed Problem Hypertrophy of nasal turbinates (68131453) Hypertrophy of nasal turbinates (J34.3) Active confirmed Problem Snoring (30446910) Snoring (R06.83) Active confirmed Problem Nasal congestion (22180490) Nasal congestion (R09.81) Active confirmed Problem Localized swelling, mass and lump, neck (R22.1) Active confirmed Plan Of Treatment No Information Insurance Providers Payer Name Payer Address Payer Phone Subscriber Number Group Number Insured Name Patient Relationship to Insured Coverage Start Date Coverage End Date MEDICARE [place] PART [address] [place] [address] [id number] SHERIF BUTTERFIELD Self - patient is the insured [employer] [address] [place] [id number] SHERIF BUTTERFIELD Self - patient is the insured Medical (General) History Medical History History ICD Code hypercholesterolemia prostate cancer Surgical History Surgery Date(Month/Year) deviated septum repair
--- OUTSIDE RECORDS SUMMARY | 2025-02-23 11:54 | XMS_ITS | Clinical Summary ---
Author Organization [address] [facility] Address [address] [place] [address] Phone Care Team Providers Care Patient Companion Name Role Phone Tyrell Carrasco MD Primary [...] neuropath y 12/13/2023 Vitamin D deficiency 12/13/2023 Social History [...] topic Insurance MEDICARE COMMERCIAL GENERIC Care Teams Patient Companion Relationship Specialty Start Date End Date Tyrell Carrasco MD [address] [place] [address] Dr Jennifer MA PCP - General 10/01/23
== END ==
LOC: HO.NUCMED 09:52
PROVIDERS: PCP Family Medicine; Visit Provider Family Medicine
DX: M25.552 Pain in left hip (principal); R93.7 Abnormal findings on diagnostic imaging of other parts of musculoskeletal system; Z85.46 Personal history of malignant neoplasm of prostate
CPT/HCPCS: 78306; A9503

== ENCOUNTER → 2025-02-23 10:00 | Outpatient (BNV) | payer MEDICARE, OTHER, SELFPAY | PROVIDERS: PCP Family Medicine; Visit Provider Radiology Diagnostic Radiology | DX: M25.552 Pain in left hip (principal) | CPT/HCPCS: 78306 ==